=== PATIENT | male | born 1940 | race Caucasian/White ===

== ENCOUNTER 2017-01-24 15:39 | Inpatient (IN) | payer MEDICARE, OTHER ==
[2017-01-24 17:10] LABS: Basophils # (A) 0.1 k/uL (0-0.2); Basophils % (A) 0 %; CH 33.9; CHCM 32.9; Eosinophils # (A) 0.1 k/uL (0-0.7); Eosinophils % (A) 1 %; HCT 52.9 % (39.0-53.0); HDW 2.95; HGB 17.6 gm/dL (13.0-17.5); Luc # (Auto) 0.07; Luc % (Auto) 1; Lymphocytes # (A) 0.6 k/uL (1.0-4.8); Lymphocytes % (A) 5 %; MCH 34.4 pg (25.0-35.0); MCHC 33.2 g/dL (31.0-37.0); MCV 103.7 fL (80.0-100.0); Macrocytosis Slight; Mean Platelet Volume 8.3; Monocytes # (A) 0.4 k/uL (0-1.0); Monocytes % (A) 4 %; Neutrophils # (A) 9.3 k/uL (1.3-7.7); Neutrophils % (A) 89 %; RDW 13.4 % (11.5-15.5); WBC 10.4 k/uL (3.8-10.6); WBC (Perox) 10.12
[2017-01-24] MEDS ORDERED: ACETAMINOPHEN TAB 500 MG TAB PO STA (17:10)
--- NOTE | 2017-01-24 17:23 | ED ---
General Adult HPI - General Source: patient, EMS, RN notes reviewed Mode of arrival: EMS Limitations: no limitations <Praksah Rodriguez - Last Filed: 01/24/17 18:43> <Sergio Peters - Last Filed: 01/24/17 18:51> - General Chief complaint: Fall Stated complaint: MILE, WEAKNESS Time Seen by Provider: 01/24/17 17:04 - History of Present Illness Initial comments: This a 76-year-old male presents emergency department via EMS chief complaint weakness. Patient states that he tried to transfer from his chair got wobbly and fell to the ground. He states he has not been able get off the ground and years. Patient states that EMS want to take him to the hospital because of his unsteadiness. Patient states he has been sick since with a cough and chest congestion. He states he's had gotten cold flashes. Patient states cough is wet sounding and slightly productive. Denies any chest pain denies any history of CHF, COPD or asthma. Patient denies any headache or dizziness. Denies head injury, LOC. Denies any hip or any back pain from a fall. He states it was a gentle fall to the ground. Patient has no abdominal complaints. (Prakash Rodriguez) - Related Data Home Medications Medication Instructions Recorded Confirmed Clotrimazole/Betameth Cream 1 applic TOPICAL BID 01/17/15 01/24/17 [Lotrisone] Gabapentin [Neurontin] 300 mg PO Q8H 01/17/15 01/24/17 Metaxalone 800 mg PO BID PRN 01/17/15 01/24/17 Finasteride [Proscar] 5 mg PO QAM 12/14/15 01/24/17 Furosemide [Lasix] 20 mg PO QAM 12/14/15 01/24/17 Bisacodyl [Dulcolax] 5 mg PO DAILY 03/09/16 01/24/17 Enalapril [Vasotec] 2.5 mg PO DAILY 03/09/16 01/24/17 Multivitamins, Thera [Multivitamin 1 tab PO DAILY 03/09/16 01/24/17 (formulary)] Rosuvastatin [Crestor] 10 mg PO DAILY 03/09/16 01/24/17 Apixaban [Eliquis] 5 mg PO BID 01/24/17 01/24/17 Cyanocobalamin (Vitamin B-12) 1,000 mcg PO DAILY 01/24/17 01/24/17 [Vitamin B-12] HYDROcodone/APAP 7.5-325MG [[place] 1 tab PO Q6HR PRN 01/24/17 01/24/17 7.5-325] Promethazine 6.25MG/5Ml [Phenergan 5 - 10 ml PO Q6H PRN 01/24/17 01/24/17 Syrup] Allergies Allergy/AdvReac Type Severity Reaction Status Date / Time Penicillins Allergy Unknown. Verified 01/24/17 16:17 INJECTION FORM ONLY Review of Systems ROS Other: All systems not noted in ROS Statement are negative. <Prakash Rodriguez - Last Filed: 01/24/17 18:43> ROS Other: All systems not noted in ROS Statement are negative. <Sergio Peters - Last Filed: 01/24/17 18:51> ROS Statement: Those systems with pertinent positive or pertinent negative responses have been documented in the HPI. 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, CLEMENTINE but no longer wears CPAP due to significant weight loss and the use of CPAP mask became painful due to R head neuropathy,Pneumonia in 2009, COPD-mild, 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 Past Psychological History: No Psychological Hx Reported Smoking Status: Never smoker Past Alcohol Use History: Occasional Past Drug Use History: None Reported - Past Family History Father Family Medical History: Cancer Additional Family Medical History / Comment(s): Father had colon cancer. He of aortic aneurysm at age 92/93 yrs Mother Family Medical History: Coronary Artery Disease (CAD) Additional Family Medical History / Comment(s): Mother had heart issues and at age 75/76 yrs. <Prakash Rodriguez - Last Filed: 01/24/17 18:43> General Exam Limitations: no limitations General appearance: alert, in no apparent distress Head exam: Present: atraumatic, normocephalic, normal inspection Eye exam: Present: normal appearance, PERRL, EOMI. Absent: scleral icterus, conjunctival injection, periorbital swelling Neck exam: Present: normal inspection, full ROM. Absent: tenderness, meningismus, lymphadenopathy Respiratory exam: Present: rhonchi (Minimal). Absent: respiratory distress, wheezes, rales, stridor Cardiovascular Exam: Present: normal rhythm, tachycardia, normal heart sounds. Absent: systolic murmur, diastolic murmur, rubs, gallop, clicks GI/Abdominal exam: Present: soft, normal bowel sounds. Absent: distended, tenderness, guarding, rebound, rigid Back exam: Absent: CVA tenderness (R), CVA tenderness (L) Neurological exam: Present: alert, oriented X3, CN II-XII intact, reflexes normal. Absent: motor sensory deficit Skin exam: Present: warm, dry, intact, normal color. Absent: rash <Prakash Rodriguez - Last Filed: 01/24/17 18:43> Course <Prakash Rodriguez - Last Filed: 01/24/17 18:43> <Sergio Peters - Last Filed: 01/24/17 18:51> Vital Signs 01/24/17 01/24/17 01/24/17 15:51 15:57 16:00 Temperature 100 F H Pulse Rate 115 H 116 H Respiratory 18 20 18 Rate Blood Pressure 164/52 172/91 O2 Sat by Pulse 92 L 95 Oximetry 01/24/17 01/24/17 01/24/17 16:43 17:00 17:15 Temperature Pulse Rate 113 H 112 H 114 H Respiratory 18 18 18 Rate Blood Pressure 124/79 133/95 158/94 O2 Sat by Pulse 95 95 95 Oximetry 01/24/17 18:00 Temperature Pulse Rate 112 H Respiratory 18 Rate Blood Pressure 154/86 O2 Sat by Pulse 96 Oximetry - Reevaluation(s) Reevaluation #1: 10/15/17 18:51 Patient does meet clinical criteria for sepsis diagnosis at 1849. (Sergio Peters) EKG Findings - EKG Comments: EKG Findings:: EKG performed at 15:55 sinus tachycardia with right bundle rachel block, rate 116 IA interval 162 QS duration 120 QT/QTC 328/455 <Prakash Rodriguez - Last Filed: 01/24/17 18:43> Medical Decision Making - Lab Data Result diagrams: 01/24/17 16:18 01/24/17 16:15 <Prakash Rodriguez - Last Filed: 01/24/17 18:43> - Lab Data Result diagrams: 01/24/17 16:18 01/24/17 16:15 <Sergio Peters - Last Filed: 01/24/17 18:51> - Medical Decision Making Case discussed with Dr. Garnica who did evaluate patient and will admit. Patient reevaluated and updated. Patient does have rhonchi and right-sided rales. Patient clinically has pneumonia. (Sergio Peters) - Lab Data Lab Results 01/24/17 01/24/17 01/24/17 Range/Units 16:15 16:15 16:18 WBC 10.4 (3.8-10.6) k/uL RBC 5.10 (4.30-5.90) m/uL Hgb 17.6 H (13.0-17.5) gm/dL Hct 52.9 (39.0-53.0) % MCV 103.7 H (80.0-100.0) fL MCH 34.4 (25.0-35.0) pg MCHC 33.2 (31.0-37.0) g/dL RDW 13.4 (11.5-15.5) % Plt Count 217 (150-450) k/uL Neutrophils % 89 % Lymphocytes % 5 % Monocytes % 4 % Eosinophils % 1 % Basophils % 0 % Neutrophils # 9.3 H (1.3-7.7) k/uL Lymphocytes # 0.6 L (1.0-4.8) k/uL Monocytes # 0.4 (0-1.0) k/uL Eosinophils # 0.1 (0-0.7) k/uL Basophils # 0.1 (0-0.2) k/uL Macrocytosis Slight PT 12.8 H (9.0-12.0) sec INR 1.3 H (<1.2) APTT 27.0 (22.0-30.0) sec Sodium 141 (137-145) mmol/L Potassium 4.2 (3.5-5.1) mmol/L Chloride 105 (98-107) mmol/L Carbon Dioxide 19 L (22-30) mmol/L Anion Gap 17 mmol/L BUN 11 (9-20) mg/dL Creatinine 0.80 (0.66-1.25) mg/dL Est GFR (MDRD) Af Amer >60 (>60 ml/min/1.73 sqM) Est GFR (MDRD) Non-Af >60 (>60 ml/min/1.73 sqM) Glucose 127 H (74-99) mg/dL Plasma Lactic Acid Lan (0.7-2.0) mmol/L Calcium 9.0 (8.4-10.2) mg/dL Total Bilirubin 1.4 H (0.2-1.3) mg/dL AST 18 (17-59) U/L ALT 30 (21-72) U/L Alkaline Phosphatase 78 (38-126) U/L Troponin I (0.000-0.034) ng/mL Total Protein 7.4 (6.3-8.2) g/dL Albumin 4.0 (3.5-5.0) g/dL Influenza Type A RNA (Not Detectd) Influenza Type B (PCR) (Not Detectd) 01/24/17 01/24/17 01/24/17 Range/Units 16:18 17:30 17:36 WBC (3.8-10.6) k/uL RBC (4.30-5.90) m/uL Hgb (13.0-17.5) gm/dL Hct (39.0-53.0) % MCV (80.0-100.0) fL MCH (25.0-35.0) pg MCHC (31.0-37.0) g/dL RDW (11.5-15.5) % Plt Count (150-450) k/uL Neutrophils % % Lymphocytes % % Monocytes % % Eosinophils % % Basophils % % Neutrophils # (1.3-7.7) k/uL Lymphocytes # (1.0-4.8) k/uL Monocytes # (0-1.0) k/uL Eosinophils # (0-0.7) k/uL Basophils # (0-0.2) k/uL Macrocytosis PT (9.0-12.0) sec INR (<1.2) APTT (22.0-30.0) sec Sodium (137-145) mmol/L Potassium (3.5-5.1) mmol/L Chloride (98-107) mmol/L Carbon Dioxide (22-30) mmol/L Anion Gap mmol/L BUN (9-20) mg/dL Creatinine (0.66-1.25) mg/dL Est GFR (MDRD) Af Amer (>60 ml/min/1.73 sqM) Est GFR (MDRD) Non-Af (>60 ml/min/1.73 sqM) Glucose (74-99) mg/dL Plasma Lactic Acid Lan 1.9 (0.7-2.0) mmol/L Calcium (8.4-10.2) mg/dL Total Bilirubin (0.2-1.3) mg/dL AST (17-59) U/L ALT (21-72) U/L Alkaline Phosphatase (38-126) U/L Troponin I <0.012 (0.000-0.034) ng/mL Total Protein (6.3-8.2) g/dL Albumin (3.5-5.0) g/dL Influenza Type A RNA Not Detected (Not Detectd) Influenza Type B (PCR) Not Detected (Not Detectd) Disposition Time of Disposition: 18:44 <Prakash Rodriguez - Last Filed: 01/24/17 18:43> <Sergio Peters - Last Filed: 01/24/17 18:51> Clinical Impression: Fall, Pneumonia, Fever, Hypoxia, Weakness, Sepsis Disposition: ADMITTED IP TO THIS HOSP Condition: Fair Referrals: Bobby Keita DO [Primary Care Provider] - 1-2 days
[2017-01-24] MEDS ORDERED: CYCLOBENZAPRINE 10 MG TAB PO PRN (17:43)
[2017-01-24 18:03] LABS: INR 1.3 (<1.2); Prothrombin Time 12.8 sec (9.0-12.0)
[2017-01-24 18:09] LABS: ALT 30 U/L (21-72); AST 18 U/L (17-59); Alkaline Phosphatase 78 U/L (38-126); Anion Gap 17 mmol/L; Blood Urea Nitrogen 11 mg/dL (9-20); Carbon Dioxide 19 mmol/L (22-30); Chloride 105 mmol/L (98-107); Glucose 127 mg/dL (74-99); Non-African American GFR(MDRD) >60 (>60 ml/min/1.73 sqM); Potassium 4.2 mmol/L (3.5-5.1); Sodium 141 mmol/L (137-145); Total Bilirubin 1.4 mg/dL (0.2-1.3); Total Protein 7.4 g/dL (6.3-8.2)
--- NOTE | 2017-01-24 18:35 | XR ---
EXAMINATION TYPE: XR chest 2V DATE OF EXAM: 01/24/2017 COMPARISON: Chest x-ray March 09, 2016 HISTORY: Cough and shortness of breath TECHNIQUE: Frontal and lateral views of the chest are obtained. FINDINGS: There is chronic parenchymal change without suspicious new focal air space opacity, pleura l effusion, or pneumothorax seen. The cardiac silhouette size remains upper limits of normal. Surgic al change in the cervical thoracic spine is partially imaged similar to prior. IMPRESSION: Chronic changes without acute cardiopulmonary process. No significant change from prior.
--- NOTE | 2017-01-24 18:43 | HP ---
HISTORY AND PHYSICAL CHIEF COMPLAINTS: Weakness, shortness of breath and cough. HISTORY: This 76-year-old gentleman with a past medical history of multiple medical problems, history of deep venous thrombosis, history of DJD, history of sleep apnea, history of cholecystectomy, being followed by Dr. Keita in the outpatient setting was complaining of cough and sputum for the past several days. Patient complained of progressively weak and today the patient also had some shortness of breath also. Patient while transferring to the chair, the patient felt wobbly and patient apparently fell down and the patient had scratches on the left arm and as well as left heel and the patient came to [facility] and admitted for further evaluation and treatment. There is no history of any fever, rigors, chills, no history of headache, loss of consciousness or seizures. PAST MEDICAL HISTORY: History of DVT, history of GERD, history of cholecystectomy. MEDICATIONS PRIOR TO ADMISSION: Include home medications are reviewed which include: 1. Crestor 10 mg daily. 2. Phenergan p.r.n. 3. Multivitamins 1 daily. 5. Nogal 7.5 q.6h p.r.n. 6. Neurontin 300 mg Q daily. 7. Lasix 20 mg q.a.m. 8. Proscar 5 mg q.i.d. 9. Vasotec 2.5 mg daily. 10.Vitamin B12 1000 mcg p.o. daily. 11.Lotrisone cream. 12.Dulcolax 5 mg daily. 13.Eliquis 5 mg p.o. b.i.d. ALLERGIES: PENICILLIN. FAMILY HISTORY: History of cancer in the family. SOCIAL HISTORY: No history of smoking. Occasional alcohol intake. REVIEW OF SYSTEMS: ENT: Diminished hearing and diminished vision. CARDIOVASCULAR: No angina or palpitations. RESPIRATORY: As mentioned earlier. GI no nausea or vomiting. no dysuria. Nervous System: As mentioned earlier. Allergy/Immunology: No asthma or hayfever. Musculoskeletal: As mentioned earlier. Hematology: No history of anemia. Endocrine: No history of diabetes or hypothyroidism. Constitutional: As mentioned earlier. Rheumatology: Negative. Dermatology: Negative. Psychiatric: As mentioned earlier. PHYSICAL EXAMINATION: Alert and oriented times three. Pulse is 116, blood pressure 172/91, respirations 18, temperature 100 degrees, pulse ox 94% on 2 L. HEENT: Conjunctivae normal. Oral mucosa moist. Neck is no jugular venous distention. No carotid bruit. No lymph node enlargement. Cardiovascular: S1, S2 muffled. Respiratory: Breath sounds diminished in the bases. A few scattered rhonchi and crackles. Expiratory wheezing also present. ABDOMEN: Soft, nontender. No mass palpable. Legs minimal edema. No swelling. NERVOUS SYSTEM: Higher functions as mentioned earlier. Moves all four extremities. Mild diffuse weakness. Lymphatics: No lymph nodes palpable in the neck, axillae or groin. Skin no ulcer, rash or bleeding. LABS: WBC 10.2, hemoglobin 17.6. ASSESSMENT: 1. Possibly acute bronchitis rule out pneumonia. 2. Weakness for evaluation. 3. History of deep vein thrombosis. 4. History of degenerative joint disease. 5. Gait dysfunction. 6. History of sleep apnea. 7. Hypertension. RECOMMENDATION AND DISCUSSION: In this 76-year-old gentleman who presented with multiple complex medical issues , will monitor the patient closely. Continue the current medications, management and symptomatic treatment. At this time I recommend chest x-ray and empiric antibiotics. Otherwise resume home medications. PT/OT evaluation for possible rehab. Dr. Keita will be consulted. Guarded prognosis because of multiple complex medical issues. Further recommendations to follow. A copy of dictation being forwarded to Dr. Keita who is the primary care physician. See orders for details. MMODL / IJN: [id number] / MTDD
[2017-01-24] MEDS: LEVOFLOXACIN 500MG-D5W PMX 500 MG in DEXTROSE/WATER 1 100ML.BAG IVPB SCH (18:48)
[2017-01-24 19:09] LABS: Appearance,Urine Clear (Clear); Bacteria,Urine Rare /hpf; Bilirubin,Urine 1+ (Negative); Glucose,Urine (UA) Negative (Negative); Ketones,Urine 4+ (Negative); Leukocyte Esterase,Urine Negative (Negative); Mucus,Urine Occasional /hpf; Nitrite,Urine Negative (Negative); PH, Urine 5.5 (5.0-8.0); Particle Count 3877; Protein,Urine 1+ (Negative); RBC,Urine 4 /hpf (0-5); Sperm,Urine Rare /hpf; Squamous Epithelial Cell,Urine <1 /hpf (0-4); UA Billing (MACRO vs. MICRO) MICRO; WBC,Urine 1 /hpf (0-5)
[2017-01-24] MEDS: HYDROcodone/APAP 7.5-325MG 1 EACH TAB PO PRN (20:00)
[2017-01-24] MEDS: GABAPENTIN 300 MG CAP PO SCH ×2 (20:58→23:25)
[2017-01-24] MEDS: APIXABAN 5 MG TAB PO SCH (20:58)
[2017-01-24] MEDS: LEVALBUTEROL NEB 1.25 MG/3 ML AMP INHALATION SCH (21:31)
[2017-01-24] MEDS: CLOTRIMAZOLE/BETAMETH 1-0.05% CREAM 45 GM TUBE TOPICAL SCH (22:44)
[2017-01-25] MEDS: LEVALBUTEROL NEB 1.25 MG/3 ML AMP INHALATION SCH ×2 (07:56→11:49)
[2017-01-25] MEDS: APIXABAN 5 MG TAB PO SCH ×2 (08:08→22:33)
[2017-01-25] MEDS: BISACODYL 5 MG TABLET.DR PO SCH (08:08)
[2017-01-25] MEDS: PANTOPRAZOLE 40 MG TABLET PO SCH (08:08)
[2017-01-25] MEDS: ATORVASTATIN 20 MG TAB PO SCH (08:09)
[2017-01-25] MEDS: CLOTRIMAZOLE/BETAMETH 1-0.05% CREAM 45 GM TUBE TOPICAL SCH ×2 (08:09→21:22)
[2017-01-25] MEDS: FINASTERIDE 5 MG TAB PO SCH (08:10)
[2017-01-25] MEDS: GABAPENTIN 300 MG CAP PO SCH ×3 (08:11→21:22)
[2017-01-25] MEDS ORDERED: LISINOPRIL 5 MG TAB PO SCH (09:00)
[2017-01-25] MEDS ORDERED: FUROSEMIDE 20 MG TAB PO SCH (09:00)
[2017-01-25 10:02] LABS: Basophils % (A) 0 %; CH 34.8; CHCM 34.1; Eosinophils % (A) 0 %; HDW 2.83; HGB 17.9 gm/dL (13.0-17.5); Luc # (Auto) 0.07; Luc % (Auto) 1; Lymphocytes # (A) 0.7 k/uL (1.0-4.8); Lymphocytes % (A) 8 %; MCHC 33.1 g/dL (31.0-37.0); MCV 102.7 fL (80.0-100.0); Macrocytosis Slight; Monocytes # (A) 0.6 k/uL (0-1.0); Monocytes % (A) 6 %; Neutrophils # (A) 7.8 k/uL (1.3-7.7); Neutrophils % (A) 85 %; RBC 5.26 m/uL (4.30-5.90); RDW 14.3 % (11.5-15.5); WBC 9.3 k/uL (3.8-10.6); WBC (Perox) 8.35
[2017-01-25 10:38] LABS: Anion Gap 14 mmol/L; Blood Urea Nitrogen 14 mg/dL (9-20); Calcium 8.6 mg/dL (8.4-10.2); Carbon Dioxide 23 mmol/L (22-30); Chloride 105 mmol/L (98-107); Glucose 108 mg/dL (74-99); Non-African American GFR(MDRD) >60 (>60 ml/min/1.73 sqM); Sodium 142 mmol/L (137-145)
[2017-01-25 10:44] LABS: Potassium 4.3 mmol/L (3.5-5.1)
[2017-01-25] MEDS: CYANOCOBALAMIN 500 MCG TAB PO SCH (11:18)
[2017-01-25] MEDS: MULTIVITAMINS, THERA 1 EACH TAB PO SCH (11:18)
--- NOTE | 2017-01-25 11:41 | P.CNPUL ---
History of Present Illness Consult date: 01/25/17 Requesting physician: Dillan Garnica Chief complaint: Weakness, cough, congestion History of present illness: This is a 76-year-old gentleman who follows with Dr. Keita as his primary care physician. He is a lifelong nonsmoker. No documented pulmonary disease. 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 The patient presented here yesterday after sustaining a fall at home. He states he was transferring from the bed to the chair and the weakness caused him to fall. He denies any injury. He also states he had been having shortness of breath, cough and congestion for approximately 1 week prior to his arrival. On and off with chills. Occasional productive cough of yellow sputum. He did have a T-max of 100.0. His chest x-ray shows evidence of chronic changes but no acute cardiopulmonary process. He is maintaining O2 saturations in the upper 90s on 3 L/m per nasal cannula. Currently afebrile. No leukocytosis. Hemodynamically stable. Urine and blood cultures are pending. Influenza screen negative. Review of Systems 14 point review of system was conducted. All negative other than as mentioned in the HPI. 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, CLEMENTINE but no longer wears CPAP due to significant weight loss and the use of CPAP mask became painful due to R head neuropathy,Pneumonia in 2009, COPD-mild, 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 Past Psychological History: No Psychological Hx Reported Additional Psychological History / Comment(s): Pt resides with his spouse. He is normally fairly independent. She uses a cane to ambulate. He needs help putting on socks and shoes. He drives. He works at his own business. Smoking Status: Never smoker Past Alcohol Use History: Occasional Past Drug Use History: None Reported - Past Family History Father Family Medical History: Cancer Additional Family Medical History / Comment(s): Father had colon cancer. He of aortic aneurysm at age 92/93 yrs Mother Family Medical History: Coronary Artery Disease (CAD) Additional Family Medical History / Comment(s): Mother had heart issues and at age 75/76 yrs. Medications and Allergies Home Medications Medication Instructions Recorded Confirmed Type Clotrimazole/Betameth Cream 1 applic TOPICAL BID 01/17/15 01/24/17 History [Lotrisone] Gabapentin [Neurontin] 300 mg PO Q8H 01/17/15 01/24/17 History Metaxalone 800 mg PO BID PRN 01/17/15 01/24/17 History Finasteride [Proscar] 5 mg PO QAM 12/14/15 01/24/17 History Furosemide [Lasix] 20 mg PO QAM 12/14/15 01/24/17 History Bisacodyl [Dulcolax] 5 mg PO DAILY 03/09/16 01/24/17 History Enalapril [Vasotec] 2.5 mg PO DAILY 03/09/16 01/24/17 History Multivitamins, Thera [Multivitamin 1 tab PO DAILY 03/09/16 01/24/17 History (formulary)] Rosuvastatin [Crestor] 10 mg PO DAILY 03/09/16 01/24/17 History Apixaban [Eliquis] 5 mg PO BID 01/24/17 01/24/17 History Cyanocobalamin (Vitamin B-12) 1,000 mcg PO DAILY 01/24/17 01/24/17 History [Vitamin B-12] HYDROcodone/APAP 7.5-325MG [[place] 1 tab PO Q6HR PRN 01/24/17 01/24/17 History 7.5-325] Promethazine 6.25MG/5Ml [Phenergan 5 - 10 ml PO Q6H PRN 01/24/17 01/24/17 History Syrup] Allergies Allergy/AdvReac Type Severity Reaction Status Date / Time Penicillins Allergy Unknown. Verified 01/24/17 16:17 INJECTION FORM ONLY Physical Exam Vitals: Vital Signs Temp Pulse Pulse Resp BP BP Pulse Ox 01/25/17 07:00 98.3 F 88 18 158/99 97 01/24/17 23:00 97.7 F 97 16 115/73 96 01/24/17 20:00 98 F 99 16 113/78 95 01/24/17 18:00 112 H 18 154/86 96 01/24/17 17:15 114 H 18 158/94 95 01/24/17 17:00 112 H 18 133/95 95 01/24/17 16:43 113 H 18 124/79 95 01/24/17 16:00 116 H 18 172/91 95 01/24/17 15:57 20 01/24/17 15:51 100 F H 115 H 18 164/52 92 L Intake and Output 01/24/17 01/25/17 01/25/17 22:59 06:59 14:59 Intake Total 300 Output Total 250 0 Balance 50 0 Intake: Intake, IV Titration 100 Amount Levofloxacin 500Mg-D5w 100 Pmx 500 mg In Dextrose/ Water 1 100ml.bag @ 100 mls/hr IVPB DAILY@1800 [facility] Rx#:[id number] Oral 200 Output: Urine 250 0 Straight 250 Other: Voiding Method Urinal # Voids 0 # Bowel Movements 0 Weight 90.718 kg GENERAL EXAM: Alert, active, comfortable in no apparent distress. HEAD: Normocephalic. EYES: Normal reaction of pupils, equal size. NOSE: Clear with pink turbinates. THROAT: No erythema or exudates. NECK: No masses, no JVD. CHEST: No chest wall deformity. LUNGS: Equal air entry with few scattered rhonchi. CVS: S1 and S2 normal with no audible murmur, regular rhythm. ABDOMEN: No hepatosplenomegaly, normal bowel sounds, no guarding or rigidity. SPINE: No scoliosis or deformity SKIN: No rashes CENTRAL NERVOUS SYSTEM: No focal deficits, tone is normal in all 4 extremities. EXTREMITIES: There is no peripheral edema. No clubbing, no cyanosis. Peripheral pulses are intact. Results - Laboratory Findings CBC and BMP: 01/25/17 09:23 01/25/17 09:23 PT/INR, D-dimer PT 12.8 sec (9.0-12.0) H 01/24/17 16:15 INR 1.3 (<1.2) H 01/24/17 16:15 Abnormal lab findings: Abnormal Labs 01/24/17 01/24/17 01/24/17 16:15 16:15 16:18 Hgb 17.6 H Hct MCV 103.7 H Neutrophils # 9.3 H Lymphocytes # 0.6 L PT 12.8 H INR 1.3 H Carbon Dioxide 19 L Glucose 127 H Total Bilirubin 1.4 H Urine Protein Urine Ketones Urine Blood Urine Bilirubin Urine Bacteria Hyaline Casts Urine Mucus 01/24/17 01/25/17 01/25/17 18:40 09:23 09:23 Hgb 17.9 H Hct 54.0 H MCV 102.7 H Neutrophils # 7.8 H Lymphocytes # 0.7 L PT INR Carbon Dioxide Glucose 108 H Total Bilirubin Urine Protein 1+ H Urine Ketones 4+ H Urine Blood Small H Urine Bilirubin 1+ H Urine Bacteria Rare H Hyaline Casts 3 H Urine Mucus Occasional H - Diagnostic Findings Chest x-ray: image reviewed (Chronic changes with no acute cardiopulmonary process) Assessment and Plan Plan: impression: #1 Fall without injury secondary to lower extremity weakness, chronic #2 Acute tracheobronchitis without clear evidence of pneumonia #3 Acute hypoxic respiratory failure secondary to above. 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 Currently maintained on apixaban with lifelong anticoagulation. #5 Hypertension. #6 Hyperlipidemia. #7 Degenerative disc disease with previous cervical spine surgery. #8 Obstructive sleep apnea but no longer wear CPAP in the outpatient setting. #9 History of shingles. #10 History of nephrolithiasis status post lithotripsy. Plan: The patient was seen and evaluated by Dr. Clinton. His chest x-ray and labs were reviewed. We'll go ahead and treat the patient for his acute bronchitis utilizing bronchodilators and empiric antibiotics in the form of Levaquin. He remains anticoagulated with the apixaban. He is on Protonix for GI prophylaxis. Physical therapy is working with the patient. We will increase his activity as tolerated. We'll continue to follow. I, the cosigning physician, performed a history & physical examination of the patient. Lungs sounds with few scattered rhonchi. I discussed the assessment and plan with my nurse practitioner, Freida Shabazz. I reviewed her note and agree with the documented findings and plan of care. Time with Patient: Greater than 30
--- NOTE | 2017-01-25 13:18 | P.PN ---
Subjective 76-year-old admitted after a fall and fever and patient is being treated for bronchitis beyond which there is no obvious source of infection that was found patient is feeling little bit better today. Physical therapy will valid the patient will continue the antibiotics. We will also get TSH. possibly of discharge tomorrow. Constitutional: As mentioned in HPI Cardio vascular: denied any chest pain, palpitations Gastrointestinal denied any nausea vomiting Pulmonary: Denied any shortness of breath cough Neurologic denied any new focal deficits Objective - Vital Signs Vital signs: Vital Signs Temp 98.3 F 01/25/17 07:00 Pulse 88 01/25/17 07:00 Resp 18 01/25/17 07:00 BP 158/99 01/25/17 07:00 Pulse Ox 97 01/25/17 07:00 Intake & Output 01/24/17 01/25/17 01/25/17 18:59 06:59 18:59 Intake Total 300 Output Total 250 0 100 Balance -250 300 -100 Weight 90.718 kg Intake: Intake, IV Titration 100 Amount Levofloxacin 500Mg-D5w 100 Pmx 500 mg In Dextrose/ Water 1 100ml.bag @ 100 mls/hr IVPB DAILY@1800 [facility] Rx#:[id number] Oral 200 Output: Urine 250 0 100 Straight 250 Other: Voiding Method Urinal # Voids 0 # Bowel Movements 0 - Exam PHYSICAL EXAMINATION: GENERAL: The patient is alert and oriented x3, not in any acute distress. Well developed, well nourished. HEENT: Pupils are round and equally reacting to light. EOMI. No scleral icterus. No conjunctival pallor. Normocephalic, atraumatic. No pharyngeal erythema. No thyromegaly. CARDIOVASCULAR: S1 and S2 present. No murmurs, rubs, or gallops. PULMONARY: Chest is clear to auscultation, no wheezing or crackles. ABDOMEN: Soft, nontender, nondistended, normoactive bowel sounds. No palpable organomegaly. MUSCULOSKELETAL: No joint swelling or deformity. EXTREMITIES: No cyanosis, clubbing, or pedal edema. NEUROLOGICAL: Gross neurological examination did not reveal any focal deficits. Patient does have generalized weakness SKIN: No rashes. - Labs CBC & Chem 7: 01/25/17 09:23 01/25/17 09:23 Labs: Abnormal Lab Results - Last 24 Hours (Table) 1001/24/17 01/24/17 Range/Units 16:15 16:15 16:18 Hgb 17.6 H (13.0-17.5) gm/dL Hct (39.0-53.0) % MCV 103.7 H (80.0-100.0) fL Neutrophils # 9.3 H (1.3-7.7) k/uL Lymphocytes # 0.6 L (1.0-4.8) k/uL PT 12.8 H (9.0-12.0) sec INR 1.3 H (<1.2) Carbon Dioxide 19 L (22-30) mmol/L Glucose 127 H (74-99) mg/dL Total Bilirubin 1.4 H (0.2-1.3) mg/dL Urine Protein (Negative) Urine Ketones (Negative) Urine Blood (Negative) Urine Bilirubin (Negative) Urine Bacteria (None) /hpf Hyaline Casts (0-2) /lpf Urine Mucus (None) /hpf 01/24/17 01/25/17 01/25/17 Range/Units 18:40 09:23 09:23 Hgb 17.9 H (13.0-17.5) gm/dL Hct 54.0 H (39.0-53.0) % MCV 102.7 H (80.0-100.0) fL Neutrophils # 7.8 H (1.3-7.7) k/uL Lymphocytes # 0.7 L (1.0-4.8) k/uL PT (9.0-12.0) sec INR (<1.2) Carbon Dioxide (22-30) mmol/L Glucose 108 H (74-99) mg/dL Total Bilirubin (0.2-1.3) mg/dL Urine Protein 1+ H (Negative) Urine Ketones 4+ H (Negative) Urine Blood Small H (Negative) Urine Bilirubin 1+ H (Negative) Urine Bacteria Rare H (None) /hpf Hyaline Casts 3 H (0-2) /lpf Urine Mucus Occasional H (None) /hpf Microbiology - Last 24 Hours (Table) 01/24/17 18:40 Urine Culture - Preliminary Urine,Catheterized Assessment and Plan Plan: #1 Fall without injury secondary to lower extremity weakness, chronic #2 Acute tracheobronchitis without clear evidence of pneumonia #3 Acute hypoxic respiratory failure secondary to above. 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 Currently maintained on apixaban with lifelong anticoagulation. #5 Hypertension. #6 Hyperlipidemia. #7 Degenerative disc disease with previous cervical spine surgery. #8 Obstructive sleep apnea but no longer wear CPAP in the outpatient setting. #9 History of shingles. #10 History of nephrolithiasis status post lithotripsy. Plan: Patient will be continue on antibiotics PT and OT evaluation possibly of discharge tomorrow home with home care patient is declining to go to subacute rehabitation. Lasix will be discontinued, lisinopril dose will be cut down to half
[2017-01-25] MEDS: LEVOFLOXACIN 500MG-D5W PMX 500 MG in DEXTROSE/WATER 1 100ML.BAG IVPB SCH (15:16)
[2017-01-25] MEDS: methylPREDNISolone SOD SUCCI 40 MG/ML 1 ML VIAL IV SCH ×2 (16:02→23:22)
[2017-01-25] MEDS: IPRATROPIUM-ALBUTEROL 3 ML NEB INHALATION SCH ×2 (17:29→19:18)
[2017-01-26] MEDS: IPRATROPIUM-ALBUTEROL 3 ML NEB INHALATION SCH ×4 (06:51→20:36)
[2017-01-26] MEDS: GABAPENTIN 300 MG CAP PO SCH ×3 (07:39→21:10)
[2017-01-26] MEDS: FINASTERIDE 5 MG TAB PO SCH (07:39)
[2017-01-26] MEDS: PANTOPRAZOLE 40 MG TABLET PO SCH (07:39)
[2017-01-26] MEDS: ATORVASTATIN 20 MG TAB PO SCH (07:39)
[2017-01-26] MEDS: LISINOPRIL 2.5 MG TAB PO SCH (07:39)
[2017-01-26] MEDS: CLOTRIMAZOLE/BETAMETH 1-0.05% CREAM 45 GM TUBE TOPICAL SCH ×2 (07:40→22:25)
[2017-01-26] MEDS: BISACODYL 5 MG TABLET.DR PO SCH (07:40)
[2017-01-26] MEDS: methylPREDNISolone SOD SUCCI 40 MG/ML 1 ML VIAL IV SCH ×2 (07:40→15:54)
[2017-01-26] MEDS: APIXABAN 5 MG TAB PO SCH ×2 (07:40→21:10)
[2017-01-26 08:56] LABS: Basophils % (A) 0 %; CH 33.6; CHCM 32.8; Eosinophils % (A) 0 %; HDW 2.92; HGB 16.6 gm/dL (13.0-17.5); Luc # (Auto) 0.04; Luc % (Auto) 1; Lymphocytes # (A) 0.6 k/uL (1.0-4.8); Lymphocytes % (A) 10 %; MCH 33.5 pg (25.0-35.0); MCHC 32.5 g/dL (31.0-37.0); MCV 103.2 fL (80.0-100.0); Macrocytosis Slight; Mean Platelet Volume 7.4; Monocytes # (A) 0.2 k/uL (0-1.0); Monocytes % (A) 3 %; Neutrophils # (A) 4.8 k/uL (1.3-7.7); Neutrophils % (A) 86 %; RBC 4.94 m/uL (4.30-5.90); RDW 13.4 % (11.5-15.5); WBC 5.6 k/uL (3.8-10.6); WBC (Perox) 5.63
[2017-01-26 09:21] LABS: Anion Gap 14 mmol/L; Blood Urea Nitrogen 12 mg/dL (9-20); Calcium 8.6 mg/dL (8.4-10.2); Carbon Dioxide 25 mmol/L (22-30); Chloride 104 mmol/L (98-107); Glucose 152 mg/dL (74-99); Non-African American GFR(MDRD) >60 (>60 ml/min/1.73 sqM); Potassium 4.4 mmol/L (3.5-5.1); Sodium 143 mmol/L (137-145)
[2017-01-26] MEDS ORDERED: ONDANSETRON 4 MG/2 ML VIAL IVP PRN (09:24)
[2017-01-26] MEDS: CYANOCOBALAMIN 500 MCG TAB PO SCH (11:19)
[2017-01-26] MEDS: MULTIVITAMINS, THERA 1 EACH TAB PO SCH (11:19)
[2017-01-26] MEDS: HYDROcodone/APAP 7.5-325MG 1 EACH TAB PO PRN (11:19)
--- NOTE | 2017-01-26 11:49 | P.PN ---
Subjective Progress Note Date: 01/26/17 Principal diagnosis: Acute tracheobronchitis, acute hypoxic respiratory failure This is a 76-year-old gentleman who follows with Dr. Keita as his primary care physician. He is a lifelong nonsmoker. No documented pulmonary disease. 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 The patient presented here yesterday after sustaining a fall at home. He states he was transferring from the bed to the chair and the weakness caused him to fall. He denies any injury. He also states he had been having shortness of breath, cough and congestion for approximately 1 week prior to his arrival. On and off with chills. Occasional productive cough of yellow sputum. He did have a T-max of 100.0. His chest x-ray shows evidence of chronic changes but no acute cardiopulmonary process. He is maintaining O2 saturations in the upper 90s on 3 L/m per nasal cannula. Currently afebrile. No leukocytosis. Hemodynamically stable. Urine and blood cultures are pending. Influenza screen negative. On 01/26/2017 patient is reevaluated. He remains quite weak. He had 4 episodes of emesis this morning, he was given IV anti-emetics. Lungs sounds are diminished air entry bilaterally, no wheezes or rhonchi. Patient has a loose nonproductive cough. Continues on 2 L oxygen per nasal cannula, no febrile episodes. Continues on Eliquis with a recent history of PEs. He states he did sit up in the chair for a period of time yesterday. Microbiology results have been reviewed and have been negative so far. Patient continues on Levaquin for antibiotic coverage Objective - Vital Signs Vital signs: Vital Signs Temp 98.1 F 01/26/17 07:00 Pulse 97 01/26/17 07:02 Resp 18 01/26/17 07:00 BP 138/85 01/26/17 07:00 Pulse Ox 96 01/26/17 07:00 Intake & Output 01/25/17 01/26/17 01/26/17 18:59 06:59 18:59 Output Total 625 550 Balance -625 -550 Output: Urine 625 550 Other: Voiding Method Urinal Urinal # Voids 1 3 2 - Exam GENERAL EXAM: Alert, active, comfortable in no apparent distress. HEAD: Normocephalic. EYES: Normal reaction of pupils, equal size. NOSE: Clear with pink turbinates. THROAT: No erythema or exudates. NECK: No masses, no JVD. CHEST: No chest wall deformity. LUNGS: Equal air entry with few scattered rhonchi. CVS: S1 and S2 normal with no audible murmur, regular rhythm. ABDOMEN: No hepatosplenomegaly, normal bowel sounds, no guarding or rigidity. SPINE: No scoliosis or deformity SKIN: No rashes CENTRAL NERVOUS SYSTEM: No focal deficits, tone is normal in all 4 extremities. EXTREMITIES: There is no peripheral edema. No clubbing, no cyanosis. Peripheral pulses are intact. - Labs CBC & Chem 7: 01/26/17 08:09 01/26/17 08:09 Labs: Abnormal Lab Results - Last 24 Hours (Table) 01/26/17 01/26/17 Range/Units 08:09 08:09 MCV 103.2 H (80.0-100.0) fL Lymphocytes # 0.6 L (1.0-4.8) k/uL Glucose 152 H (74-99) mg/dL Microbiology - Last 24 Hours (Table) 01/24/17 18:40 Urine Culture - Final Urine,Catheterized 01/24/17 16:18 Blood Culture - Preliminary Blood No Growth after 24 hours Assessment and Plan Plan: Assessment and Plan Plan: impression: #1 Fall without injury secondary to lower extremity weakness, chronic #2 Acute tracheobronchitis without clear evidence of pneumonia #3 Acute hypoxic respiratory failure secondary to above. 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 Currently maintained on apixaban with lifelong anticoagulation. #5 Hypertension. #6 Hyperlipidemia. #7 Degenerative disc disease with previous cervical spine surgery. #8 Obstructive sleep apnea but no longer wear CPAP in the outpatient setting. #9 History of shingles. #10 History of nephrolithiasis status post lithotripsy. Plan: The patient was seen and evaluated by Dr. Clinton. Continue with empiric antibiotics in the form of Levaquin, IV steroids and nebulized treatments. Unable to collect a sputum specimen as a patient is too weak to bring up the phlegm. He remains anticoagulated with the apixaban. He is on Protonix for GI prophylaxis. Physical therapy is working with the patient. We will increase his activity as tolerated. We'll continue to follow. I performed a history & physical examination of the patient and discussed their management with my nurse practitioner, Nuria Gann. I reviewed the nurse practitioner's note and agree with the documented findings and plan of care.
[2017-01-26] MEDS: LEVOFLOXACIN 500 MG TAB PO SCH (15:53)
[2017-01-27] MEDS: methylPREDNISolone SOD SUCCI 40 MG/ML 1 ML VIAL IV SCH ×2 (00:12→08:06)
--- NOTE | 2017-01-27 00:18 | P.PN ---
Subjective Progress Note Date: 01/26/17 Principal diagnosis: Status post fall 76-year-old admitted after a fall and fever and patient is being treated for bronchitis beyond which there is no obvious source of infection that was found patient is feeling little bit better today. Physical therapy will valid the patient will continue the antibiotics. TSH within normal limits and spit discharged to rehab. On 01/26/2017 Patient had episodes of vomiting today. Denied any chest pain or worsening short of breath. Able to sit in the chair. Still very weak and is participating in physical therapy. Anticipate discharge to rehab. No fever no chills. Constitutional: As mentioned in HPI Cardio vascular: denied any chest pain, palpitations Gastrointestinal denied any nausea vomiting Pulmonary: Denied any shortness of breath cough Neurologic denied any new focal deficits Current medications reviewed. Objective - Vital Signs Vital signs: Vital Signs Temp 98.1 F 01/26/17 07:00 Pulse 97 01/26/17 07:02 Resp 18 01/26/17 07:00 BP 138/85 01/26/17 07:00 Pulse Ox 96 01/26/17 07:00 Intake & Output 01/25/17 01/26/17 01/26/17 18:59 06:59 18:59 Output Total 625 550 Balance -625 -550 Output: Urine 625 550 Other: Voiding Method Urinal Urinal # Voids 1 3 2 - Exam GENERAL: The patient is alert and oriented x3, not in any acute distress. Well developed, well nourished. HEENT: Pupils are round and equally reacting to light. EOMI. No scleral icterus. No conjunctival pallor. Normocephalic, atraumatic. No pharyngeal erythema. No thyromegaly. CARDIOVASCULAR: S1 and S2 present. No murmurs, rubs, or gallops. PULMONARY: Chest is clear to auscultation, no wheezing or crackles. ABDOMEN: Soft, nontender, nondistended, normoactive bowel sounds. No palpable organomegaly. MUSCULOSKELETAL: No joint swelling or deformity. EXTREMITIES: No cyanosis, clubbing, or pedal edema. NEUROLOGICAL: Gross neurological examination did not reveal any focal deficits. Patient does have generalized weakness SKIN: No rashes. - Labs CBC & Chem 7: 01/26/17 08:09 01/26/17 08:09 Labs: Abnormal Lab Results - Last 24 Hours (Table) 01/26/17 01/26/17 Range/Units 08:09 08:09 MCV 103.2 H (80.0-100.0) fL Lymphocytes # 0.6 L (1.0-4.8) k/uL Glucose 152 H (74-99) mg/dL Microbiology - Last 24 Hours (Table) 01/24/17 18:40 Urine Culture - Final Urine,Catheterized 01/24/17 16:18 Blood Culture - Preliminary Blood No Growth after 24 hours Assessment and Plan Assessment: #1 Fall without injury secondary to lower extremity weakness, chronic #2 Acute tracheobronchitis without clear evidence of pneumonia #3 Acute hypoxic respiratory failure secondary to above. 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 Currently maintained on apixaban with lifelong anticoagulation. #5 Hypertension. #6 Hyperlipidemia. #7 Degenerative disc disease with previous cervical spine surgery. #8 Obstructive sleep apnea but no longer wear CPAP in the outpatient setting. #9 History of shingles. #10 History of nephrolithiasis status post lithotripsy. Plan: Patient will be continue on antibiotics PT and OT evaluation possibly of discharge to subacute rehabitation. Lasix was discontinued, lisinopril dose cut down to half Time with Patient: Greater than 30
[2017-01-27 07:59] LABS: Basophils % (A) 0 %; CHCM 33.3; Eosinophils % (A) 0 %; HCT 47.2 % (39.0-53.0); Luc # (Auto) 0.04; Luc % (Auto) 0; Lymphocytes # (A) 0.5 k/uL (1.0-4.8); Lymphocytes % (A) 5 %; MCH 33.5 pg (25.0-35.0); MCHC 31.7 g/dL (31.0-37.0); MCV 105.7 fL (80.0-100.0); Macrocytosis Moderate; Mean Platelet Volume 7.7; Monocytes # (A) 0.3 k/uL (0-1.0); Monocytes % (A) 3 %; Neutrophils # (A) 8.2 k/uL (1.3-7.7); Neutrophils % (A) 91 %; RBC 4.46 m/uL (4.30-5.90); RDW 14.5 % (11.5-15.5); WBC 9.1 k/uL (3.8-10.6); WBC (Perox) 9.62
[2017-01-27] MEDS: BISACODYL 5 MG TABLET.DR PO SCH (08:06)
[2017-01-27] MEDS: PANTOPRAZOLE 40 MG TABLET PO SCH (08:07)
[2017-01-27] MEDS: CLOTRIMAZOLE/BETAMETH 1-0.05% CREAM 45 GM TUBE TOPICAL SCH ×2 (08:07→21:20)
[2017-01-27] MEDS: MULTIVITAMINS, THERA 1 EACH TAB PO SCH (08:07)
[2017-01-27] MEDS: ATORVASTATIN 20 MG TAB PO SCH (08:07)
[2017-01-27] MEDS: CYANOCOBALAMIN 500 MCG TAB PO SCH (08:07)
[2017-01-27] MEDS: GABAPENTIN 300 MG CAP PO SCH ×3 (08:07→20:59)
[2017-01-27] MEDS: FINASTERIDE 5 MG TAB PO SCH (08:07)
[2017-01-27] MEDS: APIXABAN 5 MG TAB PO SCH ×2 (08:07→20:59)
[2017-01-27] MEDS: LISINOPRIL 2.5 MG TAB PO SCH (08:07)
[2017-01-27 08:45] LABS: Anion Gap 7 mmol/L; Blood Urea Nitrogen 15 mg/dL (9-20); Calcium 8.1 mg/dL (8.4-10.2); Carbon Dioxide 26 mmol/L (22-30); Chloride 107 mmol/L (98-107); Glucose 158 mg/dL (74-99); Non-African American GFR(MDRD) >60 (>60 ml/min/1.73 sqM); Sodium 140 mmol/L (137-145)
[2017-01-27] MEDS: IPRATROPIUM-ALBUTEROL 3 ML NEB INHALATION SCH ×4 (09:06→21:27)
--- NOTE | 2017-01-27 10:45 | P.PN ---
Subjective Progress Note Date: 01/27/17 Principal diagnosis: Acute tracheobronchitis, acute hypoxic respiratory failure This is a 76-year-old gentleman who follows with Dr. Keita as his primary care physician. He is a lifelong nonsmoker. No documented pulmonary disease. 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 The patient presented here yesterday after sustaining a fall at home. He states he was transferring from the bed to the chair and the weakness caused him to fall. He denies any injury. He also states he had been having shortness of breath, cough and congestion for approximately 1 week prior to his arrival. On and off with chills. Occasional productive cough of yellow sputum. He did have a T-max of 100.0. His chest x-ray shows evidence of chronic changes but no acute cardiopulmonary process. He is maintaining O2 saturations in the upper 90s on 3 L/m per nasal cannula. Currently afebrile. No leukocytosis. Hemodynamically stable. Urine and blood cultures are pending. Influenza screen negative. On 01/26/2017 patient is reevaluated. He remains quite weak. He had 4 episodes of emesis this morning, he was given IV anti-emetics. Lungs sounds are diminished air entry bilaterally, no wheezes or rhonchi. Patient has a loose nonproductive cough. Continues on 2 L oxygen per nasal cannula, no febrile episodes. Continues on Eliquis with a recent history of PEs. He states he did sit up in the chair for a period of time yesterday. Microbiology results have been reviewed and have been negative so far. Patient continues on Levaquin for antibiotic coverage. On 01/27/2017 patient is reevaluated. He states his breathing has improved somewhat although he continues with congested nonproductive cough. He continues on room air with saturation around 94%. He has been afebrile. Lung sounds are positive for scattered rhonchi, but good air entry bilaterally. Microbiology results have been reviewed and are negative so far. Patient continues on Levaquin for empiric antibiotic coverage. No episodes of nausea vomiting today. He is currently reviewing his options for discharge to rehabilitation facility for his generalized weakness. Objective - Vital Signs Vital signs: Vital Signs Temp 96.4 F L 01/27/17 07:00 Pulse 95 01/27/17 09:17 Resp 16 01/27/17 07:00 BP 134/65 01/27/17 07:00 Pulse Ox 94 L 01/27/17 07:00 Intake & Output 01/26/17 01/27/17 01/27/17 18:59 06:59 18:59 Output Total 250 400 200 Balance -250 -400 -200 Output: Urine 250 400 200 Other: Voiding Method Urinal Urinal # Voids 2 1 1 - Exam GENERAL EXAM: Alert, active, comfortable in no apparent distress. HEAD: Normocephalic. EYES: Normal reaction of pupils, equal size. NOSE: Clear with pink turbinates. THROAT: No erythema or exudates. NECK: No masses, no JVD. CHEST: No chest wall deformity. LUNGS: Equal air entry with few scattered rhonchi. CVS: S1 and S2 normal with no audible murmur, regular rhythm. ABDOMEN: No hepatosplenomegaly, normal bowel sounds, no guarding or rigidity. SPINE: No scoliosis or deformity SKIN: No rashes CENTRAL NERVOUS SYSTEM: No focal deficits, tone is normal in all 4 extremities. EXTREMITIES: There is no peripheral edema. No clubbing, no cyanosis. Peripheral pulses are intact. - Labs CBC & Chem 7: 01/27/17 07:46 01/27/17 07:46 Labs: Abnormal Lab Results - Last 24 Hours (Table) 01/27/17 01/27/17 Range/Units 07:46 07:46 MCV 105.7 H (80.0-100.0) fL Neutrophils # 8.2 H (1.3-7.7) k/uL Lymphocytes # 0.5 L (1.0-4.8) k/uL Glucose 158 H (74-99) mg/dL Calcium 8.1 L (8.4-10.2) mg/dL Microbiology - Last 24 Hours (Table) 01/24/17 16:18 Blood Culture - Preliminary Blood No Growth after 48 hours Assessment and Plan Plan: Assessment and Plan Plan: impression: #1 Fall without injury secondary to lower extremity weakness, chronic #2 Acute tracheobronchitis without clear evidence of pneumonia #3 Acute hypoxic respiratory failure secondary to above. 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 Currently maintained on apixaban with lifelong anticoagulation. #5 Hypertension. #6 Hyperlipidemia. #7 Degenerative disc disease with previous cervical spine surgery. #8 Obstructive sleep apnea but no longer wear CPAP in the outpatient setting. #9 History of shingles. #10 History of nephrolithiasis status post lithotripsy. Plan: The patient was seen and evaluated by Dr. Clinton. Continue with empiric antibiotics in the form of Levaquin, IV steroids and nebulized treatments. Unable to produce a sputum sample , blood cultures and urine culture show no growth . He remains anticoagulated with the apixaban. He is on Protonix for GI prophylaxis. Physical therapy is working with the patient. Patient is considering subacute rehab placement for his generalized weakness. Making improvement in his pulmonary status. We will increase his activity as tolerated. We'll continue to follow. I performed a history & physical examination of the patient and discussed their management with my nurse practitioner, Nuria Gann. I reviewed the nurse practitioner's note and agree with the documented findings and plan of care. Lung sounds good air entry bilaterally, with scattered rhonchi at posterior bases. I attest to the documentation by the nurse practitioner
[2017-01-27 14:17] VITALS: BMI 32.3
[2017-01-27] MEDS: methylPREDNISolone 4 MG TAB TAPER PO SCH (16:25)
[2017-01-27] MEDS: LEVOFLOXACIN 500 MG TAB PO SCH (16:26)
--- NOTE | 2017-01-28 00:45 | P.PN ---
Subjective Progress Note Date: 01/27/17 Principal diagnosis: Status post fall 76-year-old admitted after a fall and fever and patient is being treated for bronchitis beyond which there is no obvious source of infection that was found patient is feeling little bit better today. Physical therapy will valid the patient will continue the antibiotics. TSH within normal limits and spit discharged to rehab. On 01/26/2017 Patient had episodes of vomiting today. Denied any chest pain or worsening short of breath. Able to sit in the chair. Still very weak and is participating in physical therapy. Anticipate discharge to rehab. No fever no chills. 01/27/2017 Patient denied any fever or chills. No worsening short of breath. Patient continues to have dry cough. And also feels weak. Sputum sample could not be obtained from the patient. PTOT is following and possible transfer to rehab. Constitutional: As mentioned in HPI Cardio vascular: denied any chest pain, palpitations Gastrointestinal denied any nausea vomiting Pulmonary: Denied any shortness of breath cough Neurologic denied any new focal deficits Current medications reviewed. Objective - Vital Signs Vital signs: Vital Signs Temp 98.5 F 01/27/17 16:33 Pulse 102 H 01/27/17 21:39 Resp 18 01/27/17 17:30 BP 127/72 01/27/17 16:33 Pulse Ox 95 01/27/17 16:33 Intake & Output 01/27/17 01/27/17 01/28/17 06:59 18:59 06:59 Intake Total 1200 Output Total 400 200 Balance -400 1000 Weight 90.718 kg Intake: Oral 1200 Output: Urine 400 200 Other: Voiding Method Urinal # Voids 1 3 - Exam GENERAL: The patient is alert and oriented x3, not in any acute distress. Well developed, well nourished. HEENT: Pupils are round and equally reacting to light. EOMI. No scleral icterus. No conjunctival pallor. Normocephalic, atraumatic. No pharyngeal erythema. No thyromegaly. CARDIOVASCULAR: S1 and S2 present. No murmurs, rubs, or gallops. PULMONARY: Chest is clear to auscultation, no wheezing . Scattered crackles. ABDOMEN: Soft, nontender, nondistended, normoactive bowel sounds. No palpable organomegaly. MUSCULOSKELETAL: No joint swelling or deformity. EXTREMITIES: No cyanosis, clubbing, or pedal edema. NEUROLOGICAL: Gross neurological examination did not reveal any focal deficits. Patient does have generalized weakness SKIN: No rashes. - Labs CBC & Chem 7: 01/27/17 07:46 01/27/17 07:46 Labs: Abnormal Lab Results - Last 24 Hours (Table) 01/27/17 01/27/17 Range/Units 07:46 07:46 MCV 105.7 H (80.0-100.0) fL Neutrophils # 8.2 H (1.3-7.7) k/uL Lymphocytes # 0.5 L (1.0-4.8) k/uL Glucose 158 H (74-99) mg/dL Calcium 8.1 L (8.4-10.2) mg/dL Microbiology - Last 24 Hours (Table) 01/24/17 16:18 Blood Culture - Preliminary Blood No Growth after 72 hours Assessment and Plan Assessment: #1 Fall without injury secondary to lower extremity weakness, chronic #2 Acute tracheobronchitis without clear evidence of pneumonia #3 Acute hypoxic respiratory failure secondary to above. 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 Currently maintained on apixaban with lifelong anticoagulation. #5 Hypertension. #6 Hyperlipidemia. #7 Degenerative disc disease with previous cervical spine surgery. #8 Obstructive sleep apnea but no longer wear CPAP in the outpatient setting. #9 History of shingles. #10 History of nephrolithiasis status post lithotripsy. Plan: Patient will be continue on antibiotics PT and OT evaluation possibly of discharge to subacute rehabitation. Lasix was discontinued, lisinopril dose cut down to half. Blood culture and urine culture is negative. Continue with breathing treatments and steroids and antibiotics.
[2017-01-28 07:29] LABS: Basophils % (A) 0 %; CH 33.5; CHCM 32.9; Eosinophils % (A) 0 %; HCT 46.5 % (39.0-53.0); HDW 2.85; HGB 15.1 gm/dL (13.0-17.5); Luc # (Auto) 0.06; Luc % (Auto) 1; Lymphocytes # (A) 0.8 k/uL (1.0-4.8); Lymphocytes % (A) 8 %; MCH 33.2 pg (25.0-35.0); MCHC 32.5 g/dL (31.0-37.0); MCV 102.4 fL (80.0-100.0); Macrocytosis Slight; Monocytes # (A) 0.4 k/uL (0-1.0); Monocytes % (A) 4 %; Neutrophils % (A) 87 %; RBC 4.53 m/uL (4.30-5.90); RDW 13.2 % (11.5-15.5); WBC 10.3 k/uL (3.8-10.6); WBC (Perox) 10.14
[2017-01-28] MEDS: IPRATROPIUM-ALBUTEROL 3 ML NEB INHALATION SCH ×3 (07:47→15:13)
[2017-01-28 07:48] LABS: Anion Gap 8 mmol/L; Blood Urea Nitrogen 14 mg/dL (9-20); Calcium 8.7 mg/dL (8.4-10.2); Carbon Dioxide 30 mmol/L (22-30); Chloride 104 mmol/L (98-107); Glucose 127 mg/dL (74-99); Non-African American GFR(MDRD) >60 (>60 ml/min/1.73 sqM); Potassium 4.8 mmol/L (3.5-5.1); Sodium 142 mmol/L (137-145)
[2017-01-28] MEDS: APIXABAN 5 MG TAB PO SCH (08:52)
[2017-01-28] MEDS: PANTOPRAZOLE 40 MG TABLET PO SCH (08:52)
[2017-01-28] MEDS: BISACODYL 5 MG TABLET.DR PO SCH (08:53)
[2017-01-28] MEDS: CLOTRIMAZOLE/BETAMETH 1-0.05% CREAM 45 GM TUBE TOPICAL SCH (08:53)
[2017-01-28] MEDS: ATORVASTATIN 20 MG TAB PO SCH (08:53)
[2017-01-28] MEDS: FINASTERIDE 5 MG TAB PO SCH (08:53)
[2017-01-28] MEDS: LISINOPRIL 2.5 MG TAB PO SCH (08:54)
[2017-01-28] MEDS: methylPREDNISolone 4 MG TAB TAPER PO SCH (08:54)
[2017-01-28] MEDS: GABAPENTIN 300 MG CAP PO SCH ×2 (08:54→15:14)
--- NOTE | 2017-01-28 10:26 | P.PN ---
Subjective Progress Note Date: 01/28/17 Principal diagnosis: Acute tracheobronchitis, acute hypoxic respiratory failure This is a 76-year-old gentleman who follows with Dr. Keita as his primary care physician. He is a lifelong nonsmoker. No documented pulmonary disease. 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 The patient presented here yesterday after sustaining a fall at home. He states he was transferring from the bed to the chair and the weakness caused him to fall. He denies any injury. He also states he had been having shortness of breath, cough and congestion for approximately 1 week prior to his arrival. On and off with chills. Occasional productive cough of yellow sputum. He did have a T-max of 100.0. His chest x-ray shows evidence of chronic changes but no acute cardiopulmonary process. He is maintaining O2 saturations in the upper 90s on 3 L/m per nasal cannula. Currently afebrile. No leukocytosis. Hemodynamically stable. Urine and blood cultures are pending. Influenza screen negative. On 01/26/2017 patient is reevaluated. He remains quite weak. He had 4 episodes of emesis this morning, he was given IV anti-emetics. Lungs sounds are diminished air entry bilaterally, no wheezes or rhonchi. Patient has a loose nonproductive cough. Continues on 2 L oxygen per nasal cannula, no febrile episodes. Continues on Eliquis with a recent history of PEs. He states he did sit up in the chair for a period of time yesterday. Microbiology results have been reviewed and have been negative so far. Patient continues on Levaquin for antibiotic coverage. On 01/27/2017 patient is reevaluated. He states his breathing has improved somewhat although he continues with congested nonproductive cough. He continues on room air with saturation around 94%. He has been afebrile. Lung sounds are positive for scattered rhonchi, but good air entry bilaterally. Microbiology results have been reviewed and are negative so far. Patient continues on Levaquin for empiric antibiotic coverage. No episodes of nausea vomiting today. He is currently reviewing his options for discharge to rehabilitation facility for his generalized weakness. On 01/28/2017 patient seen in follow-up. Continues with loose nonproductive cough, some scattered rhonchi bilaterally. No wheezing, no rales. Patient remains on room air, with O2 saturation at 93-95%. Afebrile. Can be cleared for discharge from pulmonary standpoint on Levaquin and Medrol Dosepak. Patient decided to go home after discharge, instead of the subacute rehab. He has been getting up to the chair and sit for periods of time during the day. He resides at home with his . Objective - Vital Signs Vital signs: Vital Signs Temp 98.0 F 01/28/17 07:00 Pulse 92 01/28/17 07:00 Resp 16 01/28/17 07:00 BP 156/91 01/28/17 07:00 Pulse Ox 93 L 01/28/17 07:48 Intake & Output 01/27/17 01/28/17 01/28/17 18:59 06:59 18:59 Intake Total 1200 Output Total 200 1050 Balance 1000 -1050 Weight 90.718 kg Intake: Oral 1200 Output: Urine 200 1050 Other: Voiding Method Urinal # Voids 3 - Exam GENERAL EXAM: Alert, active, comfortable in no apparent distress. HEAD: Normocephalic. EYES: Normal reaction of pupils, equal size. NOSE: Clear with pink turbinates. THROAT: No erythema or exudates. NECK: No masses, no JVD. CHEST: No chest wall deformity. LUNGS: Equal air entry with few scattered rhonchi. CVS: S1 and S2 normal with no audible murmur, regular rhythm. ABDOMEN: No hepatosplenomegaly, normal bowel sounds, no guarding or rigidity. SPINE: No scoliosis or deformity SKIN: No rashes CENTRAL NERVOUS SYSTEM: No focal deficits, tone is normal in all 4 extremities. EXTREMITIES: There is no peripheral edema. No clubbing, no cyanosis. Peripheral pulses are intact. - Labs CBC & Chem 7: 01/28/17 07:05 01/28/17 07:05 Labs: Abnormal Lab Results - Last 24 Hours (Table) 01/28/17 01/28/17 Range/Units 07:05 07:05 MCV 102.4 H (80.0-100.0) fL Neutrophils # 9.0 H (1.3-7.7) k/uL Lymphocytes # 0.8 L (1.0-4.8) k/uL Glucose 127 H (74-99) mg/dL Microbiology - Last 24 Hours (Table) 01/24/17 16:18 Blood Culture - Preliminary Blood No Growth after 72 hours Assessment and Plan Plan: Assessment and Plan Plan: impression: #1 Fall without injury secondary to lower extremity weakness, chronic #2 Acute tracheobronchitis without clear evidence of pneumonia #3 Acute hypoxic respiratory failure secondary to above. 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 Currently maintained on apixaban with lifelong anticoagulation. #5 Hypertension. #6 Hyperlipidemia. #7 Degenerative disc disease with previous cervical spine surgery. #8 Obstructive sleep apnea but no longer wear CPAP in the outpatient setting. #9 History of shingles. #10 History of nephrolithiasis status post lithotripsy. Plan: The patient was seen and evaluated by Dr. Clinton. Blood cultures and urine culture show no growth . He remains anticoagulated with the apixaban. He is on Protonix for GI prophylaxis. Physical therapy is working with the patient. Patient is stable for discharge home from pulmonary standpoint on Levaquin and Medrol Dosepak. Follow-up with Dr. Keita in the office on February 10 at 1415. I performed a history & physical examination of the patient and discussed their management with my nurse practitioner, Nuria Gann. I reviewed the nurse practitioner's note and agree with the documented findings and plan of care. Lung sounds good air entry bilaterally, with scattered rhonchi at posterior bases. Stable for discharge. I attest to the documentation by the nurse practitioner
[2017-01-28] MEDS: LEVOFLOXACIN 500 MG TAB PO SCH (12:45)
[2017-01-28] MEDS: CYANOCOBALAMIN 500 MCG TAB PO SCH (12:45)
[2017-01-28] MEDS: MULTIVITAMINS, THERA 1 EACH TAB PO SCH (12:45)
[2017-01-28 15:40] VITALS: BP 150/91; PULSE 105; RESP 20; TEMP 98.1
--- NOTE | 2017-01-28 16:20 | P.DS ---
Providers Date of admission: 01/24/17 18:59 Expected date of discharge: 01/28/17 Attending physician: Dillan Schaefer Consults: 01/24/17 17:45 Consult Physician Routine Consulting Provider: Bobby Keita Reason/Comments: pneumonia?? Do you want consulting provider notified?: Yes Primary care physician: Bobby Keita [facility] Course: Final Diagnoses: #1 Fall without injury secondary to lower extremity weakness, chronic #2 Acute tracheobronchitis without clear evidence of pneumonia #3 Acute hypoxic respiratory failure secondary to above. 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 Currently maintained on apixaban with lifelong anticoagulation. #5 Hypertension. #6 Hyperlipidemia. #7 Degenerative disc disease with previous cervical spine surgery. #8 Obstructive sleep apnea but no longer wear CPAP in the outpatient setting. #9 History of shingles. #10 History of nephrolithiasis status post lithotripsy. Hospital course: This is a 76-year-old admitted after a fall , with fever. Treated for bronchitis beyond which there is no obvious source of infection that was found. Evaluated by pulmonary. Maintained on IV antibiotics, nebulized bronchodilators and steroids. Significant clinical improvement. But will require oxygen upon discharge as patient desats to 75% on room air after ambulation. Evaluated by physical therapy and subacute rehab recommended. Patient unable to attend subacute rehab as he states his has beginning stages of dementia and unable to stay home alone. Cleared by pulmonary for discharge. Patient is being discharged home in a stable condition with guarded prognosis. The impression and plan of care has been dictated as directed. : I performed a history and examination of this patient, discussed the same with the dictator. I agree with the dictator's note ,documented as a scribe. Any additional findings or plans will be noted. Patient Condition at Discharge: Stable Plan - Discharge Summary New Discharge Prescriptions: New Levofloxacin [Levaquin] 500 mg PO DAILY@1600 #7 tab methylPREDNISolone Dose Pack [Medrol Dose Pack] 4 mg PO DIRECTED #21 package Pantoprazole [Protonix] 40 mg PO -BRKFST #15 tablet. Albuterol Inhaler [Ventolin Hfa Inhaler] 2 puff INHALATION Q6HR PRN #1 inhaler PRN Reason: Shortness Of Breath Continue Gabapentin [Neurontin] 300 mg PO Q8H Clotrimazole/Betameth Cream [Lotrisone] 1 applic TOPICAL BID Metaxalone 800 mg PO BID PRN PRN Reason: NECK PAIN Furosemide [Lasix] 20 mg PO QAM Finasteride [Proscar] 5 mg PO QAM Rosuvastatin [Crestor] 10 mg PO DAILY Multivitamins, Thera [Multivitamin (formulary)] 1 tab PO DAILY Bisacodyl [Dulcolax] 5 mg PO DAILY Enalapril [Vasotec] 2.5 mg PO DAILY HYDROcodone/APAP 7.5-325MG [[place] 7.5-325] 1 tab PO Q6HR PRN PRN Reason: Pain Promethazine 6.25MG/5Ml [Phenergan Syrup] 5 - 10 ml PO Q6H PRN PRN Reason: Cough Cyanocobalamin (Vitamin B-12) [Vitamin B-12] 1,000 mcg PO DAILY Apixaban [Eliquis] 5 mg PO BID Discharge Medication List Clotrimazole/Betameth Cream [Lotrisone] 1 applic TOPICAL BID 01/17/15 [History] Gabapentin [Neurontin] 300 mg PO Q8H 01/17/15 [History] Metaxalone 800 mg PO BID PRN 01/17/15 [History] Finasteride [Proscar] 5 mg PO QAM 12/14/15 [History] Furosemide [Lasix] 20 mg PO QAM 12/14/15 [History] Bisacodyl [Dulcolax] 5 mg PO DAILY 03/09/16 [History] Enalapril [Vasotec] 2.5 mg PO DAILY 03/09/16 [History] Multivitamins, Thera [Multivitamin (formulary)] 1 tab PO DAILY 03/09/16 [History ] Rosuvastatin [Crestor] 10 mg PO DAILY 03/09/16 [History] Apixaban [Eliquis] 5 mg PO BID 01/24/17 [History] Cyanocobalamin (Vitamin B-12) [Vitamin B-12] 1,000 mcg PO DAILY 01/24/17 [ History] HYDROcodone/APAP 7.5-325MG [[place] 7.5-325] 1 tab PO Q6HR PRN 01/24/17 [History] Promethazine 6.25MG/5Ml [Phenergan Syrup] 5 - 10 ml PO Q6H PRN 01/24/17 [History ] Albuterol Inhaler [Ventolin Hfa Inhaler] 2 puff INHALATION Q6HR PRN #1 inhaler 01/28/17 [Rx] Levofloxacin [Levaquin] 500 mg PO DAILY@1600 #7 tab 01/28/17 [Rx] Pantoprazole [Protonix] 40 mg PO AC-BRKFST #15 tablet. 01/28/17 [Rx] methylPREDNISolone Dose Pack [Medrol Dose Pack] 4 mg PO DIRECTED #21 package 01/28/17 [Rx] Follow up Appointment(s)/Referral(s): Bobby Keita DO [Primary Care Provider] - 02/10/17 2:15 pm [facility] Visiting Nurse, [NON-STAFF] - Patient Instructions/Handouts: Pneumonia (DC) Activity/Diet/Wound Care/Special Instructions: Cardiac diet 2Liters nasal cannula recommended and script given. Limited activity until follow up. Discharge Disposition: HOME WITH HOME HEALTH SERVICES
== END 2017-01-28 16:03 | disposition home health service (06) | DRG 190 ==
LOC: EC 15:39 → 4MS4W 18:59
PROVIDERS: ADMIT Hospitalist; ATTEND Hospitalist
DX: J44.0 Chronic obstructive pulmonary disease with (acute) lower respiratory infection (principal); J96.01 Acute respiratory failure with hypoxia; I10 Essential (primary) hypertension; E78.5 Hyperlipidemia, unspecified; J20.9 Acute bronchitis, unspecified; G47.33 Obstructive sleep apnea (adult) (pediatric); K21.9 Gastro-esophageal reflux disease without esophagitis; W19.XXXA Unspecified fall, initial encounter; Y92.009 Unspecified place in unspecified non-institutional (private) residence as the place of occurrence of the external cause; Z79.01 Long term (current) use of anticoagulants; Z79.52 Long term (current) use of systemic steroids; Z79.899 Other long term (current) drug therapy; Z80.0 Family history of malignant neoplasm of digestive organs; Z82.49 Family history of ischemic heart disease and other diseases of the circulatory system; Z86.19 Personal history of other infectious and parasitic diseases; Z86.711 Personal history of pulmonary embolism; Z86.718 Personal history of other venous thrombosis and embolism; Z87.442 Personal history of urinary calculi; Z96.642 Presence of left artificial hip joint; Z98.1 Arthrodesis status
CPT/HCPCS: 36415; 51701; 71020; 80048; 80053; 81001; 83605; 84443; 84484; 85025; 85610; 85730; 87040; 87086; 87502; 93005; 94640; 94760; 96365; 99285

== ENCOUNTER → 2017-07-29 | Outpatient (CLI) | payer MEDICARE, OTHER ==
[2017-07-29 12:08] LABS: Basophils # (A) 0.1 k/uL (0-0.2); Basophils % (A) 1 %; Eosinophils # (A) 0.2 k/uL (0-0.7); Eosinophils % (A) 4 %; HCT 49.4 % (39.0-53.0); HGB 16.6 gm/dL (13.0-17.5); Lymphocytes # (A) 1.2 k/uL (1.0-4.8); Lymphocytes % (A) 25 %; MCH 33.6 pg (25.0-35.0); MCHC 33.6 g/dL (31.0-37.0); MCV 99.9 fL (80.0-100.0); Mean Platelet Volume 7.7; Monocytes # (A) 0.3 k/uL (0-1.0); Monocytes % (A) 5 %; Neutrophils # (A) 3.1 k/uL (1.3-7.7); Neutrophils % (A) 63 %; Platelet Count 233 k/uL (150-450); RBC 4.95 m/uL (4.30-5.90); RDW 13.7 % (11.5-15.5); WBC 4.9 k/uL (3.8-10.6)
[2017-07-29 12:40] LABS: ALT 20 U/L (21-72); AST 17 U/L (17-59); Albumin 4.1 g/dL (3.5-5.0); Alkaline Phosphatase 60 U/L (38-126); Anion Gap 13 mmol/L; Blood Urea Nitrogen 15 mg/dL (9-20); C Reactive Protein <5.0 mg/L (<10.0); Carbon Dioxide 28 mmol/L (22-30); Chloride 104 mmol/L (98-107); Cholesterol 180 mg/dL (<200); Glucose 92 mg/dL (74-99); HDL Cholesterol 37 mg/dL (40-60); LDL Cholesterol,Calculated 108 mg/dL (0-99); Potassium 4.4 mmol/L (3.5-5.1); Sodium 145 mmol/L (137-145); Total Bilirubin 0.9 mg/dL (0.2-1.3); Total Protein 7.1 g/dL (6.3-8.2); Triglycerides 175 mg/dL (<150)
[2017-07-29 12:50] LABS: T4, Free (Free Thyroxine) 1.29 ng/dL (0.78-2.19)
[2017-07-29 13:04] LABS: PSA Annual Screen 0.44 ng/mL (0.00-4.00)
[2017-07-29 14:45] LABS: Erythrocyte Sedimentation Rate 12 mm/hr (0-15)
[2017-07-29 17:14] LABS: Hemoglobin A1C 5.6 % (4.0-6.0)
== END | disposition home or self-care (01) ==
LOC: LABWHC1 11:20
PROVIDERS: ATTEND Internal Medicine Critical Care Medicine
DX: I10 Essential (primary) hypertension (principal); I82.409 Acute embolism and thrombosis of unspecified deep veins of unspecified lower extremity; E78.5 Hyperlipidemia, unspecified; D68.59 Other primary thrombophilia
CPT/HCPCS: 84439; 80061; 80053; 85652; 82533; 84443; 85025; 86140; 82306; 83036; 36415; G0103

== ENCOUNTER 2018-03-13 11:05 | Inpatient (IN) | payer MEDICARE, OTHER ==
[2018-03-13] MEDS ORDERED: DIPH,PERTUS(ACELL)TETVAC-LF 0.5 ML VIAL IM ONE (12:10)
[2018-03-13] MEDS ORDERED: ACETAMINOPHEN IV (For NPO) 1,000 MG in EMPTY BAG 1 BAG IVPB ONE (12:13)
--- NOTE | 2018-03-13 12:16 | ED ---
General Adult HPI - General Chief complaint: Weakness Stated complaint: weakness Source: patient, EMS Mode of arrival: EMS Limitations: no limitations - History of Present Illness Initial comments: Dictation was produced using [email or web address] dictation software. please excuse any grammatical, word or spelling errors. Chief Complaint: 77-year-old male presents with 1 day history of malaise and syncope. History of Present Illness: 69-year-old male presents with 1 day history of malaise and presyncope. Patient states that he has been having some sore throat. Denies any overt sick contacts. Denies any shortness of breath or abdominal pain. Patient states he was walking in his house today when he became very lightheaded causing him to fall. He did say he strike his left hip. Patient has no other pain complaints. He did state he suffered an abrasion to his left hip. Patient has a lot of medical problems. He is on eliquis for DVT prophylaxis. Last week patient had oral surgery performed for his right upper maxillary tooth. States that the procedure went well. Patient has any nausea, vomiting or diarrhea. Denies any abdominal pain. Denies any chest pain. The ROS documented in this emergency department record has been reviewed and confirmed by me. Those systems with pertinent positive or negative responses have been documented in the HPI. All other systems are other negative and/or noncontributory. - Related Data Home Medications Medication Instructions Recorded Confirmed Gabapentin [Neurontin] 600 mg PO TID@0000,0800,1600 01/17/15 03/13/18 Metaxalone 800 mg PO DAILY@0000 01/17/15 03/13/18 Finasteride [Proscar] 5 mg PO DAILY@1200 12/14/15 03/13/18 Furosemide [Lasix] 20 mg PO DAILY PRN 12/14/15 03/13/18 Bisacodyl [Dulcolax] 5 mg PO DAILY PRN 03/09/16 03/13/18 Enalapril [Vasotec] 2.5 mg PO DAILY@1200 03/09/16 03/13/18 Apixaban [Eliquis] 5 mg PO BID@0000,1200 01/24/17 03/13/18 HYDROcodone/APAP 7.5-325MG [[place] 1 tab PO Q6HR PRN 01/24/17 03/13/18 7.5-325] Allergies Allergy/AdvReac Type Severity Reaction Status Date / Time Penicillins Allergy Unknown. Verified 03/13/18 12:31 INJECTION FORM ONLY Review of Systems ROS Statement: Those systems with pertinent positive or pertinent negative responses have been documented in the HPI. ROS Other: All systems not noted in ROS Statement are negative. 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, CLEMENTINE but no longer wears CPAP due to significant weight loss and the use of CPAP mask became painful due to R head neuropathy,Pneumonia in 2009, COPD-mild, 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 Past Psychological History: No Psychological Hx Reported Smoking Status: Never smoker Past Alcohol Use History: Occasional Past Drug Use History: None Reported - Past Family History Father Family Medical History: Cancer Additional Family Medical History / Comment(s): Father had colon cancer. He of aortic aneurysm at age 92/93 yrs Mother Family Medical History: Coronary Artery Disease (CAD) Additional Family Medical History / Comment(s): Mother had heart issues and at age 75/76 yrs. General Exam - General Exam Comments Initial Comments: PHYSICAL EXAM: General Impression: Alert and oriented x3, not in acute distress HEENT: Normocephalic atraumatic, extra-ocular movements intact, pupils equal and reactive to light bilaterally, dry mucous membranes, erythematous posterior oropharynx Cardiovascular: Heart regular rate and rhythm, S1&S2 audible, no murmurs, rubs or gallops Chest: Lungs clear to auscultation bilaterally, no rhonchi, no wheeze, no rales Abdomen: Bowel sounds present, abdomen soft, non-tender, non-distended, no organomegaly Musculoskeletal: Pulses present and equal in all extremities, no peripheral edema Motor: Moves all extremities grossly, no motor deficits Neurological: CN II-XII grossly intact, no focal motor or sensory deficits noted Skin: Superficial abrasion to the left hip, extending from the left inguinal area to the left superior. Pelvis Psych: Normal affect and mood Limitations: no limitations Course Vital Signs 03/13/18 11:13 Temperature 100.6 F H Pulse Rate 112 H Respiratory 20 Rate Blood Pressure 134/93 O2 Sat by Pulse 95 Oximetry Medical Decision Making - Medical Decision Making ED course: 77-year-old male presents with syncopal episode and feelings of generalized malaise. Vital signs upon arrival shows temperature 100.6, heart rate of 112. Rest vital signs within normal limits laboratory evaluation obtained. CBC obtained showing no acute process. Coag panel is unremarkable. Metabolic panel shows lactic acidosis of 2.3. Glucose 130. Chest x-ray, pelvis x-ray and brain CT is unremarkable. The reading swabs and urine studies. SIRS/sepsis. At this point there is no clear source of patient's infectious symptoms. There is high clinical suspicion that patient 's symptoms are secondary to influenza versus strep pharyngitis. The cultures and urine cultures were obtained. Patient given intravenous fluids. Patient reevaluated with persistent symptoms. EKG interpretation: Ventricular rate 105, sinus tachycardia, VA interval 190, QS 124, QTC 494.. No VA prolongation, no QTC prolongation, no ST or T-wave changes noted. Overall, this EKG is unremarkable - Lab Data Result diagrams: 03/13/18 12:55 03/13/18 12:55 Lab Results 03/13/18 03/13/18 03/13/18 Range/Units 12:55 12:55 12:55 WBC 8.7 (3.8-10.6) k/uL RBC 5.13 (4.30-5.90) m/uL Hgb 17.4 (13.0-17.5) gm/dL Hct 52.8 (39.0-53.0) % MCV 102.9 H (80.0-100.0) fL MCH 33.9 (25.0-35.0) pg MCHC 32.9 (31.0-37.0) g/dL RDW 13.5 (11.5-15.5) % Plt Count 182 (150-450) k/uL Neutrophils % 87 % Lymphocytes % 5 % Monocytes % 6 % Eosinophils % 1 % Basophils % 1 % Neutrophils # 7.6 (1.3-7.7) k/uL Lymphocytes # 0.4 L (1.0-4.8) k/uL Monocytes # 0.5 (0-1.0) k/uL Eosinophils # 0.1 (0-0.7) k/uL Basophils # 0.1 (0-0.2) k/uL Macrocytosis Slight PT (9.0-12.0) sec INR (<1.2) APTT (22.0-30.0) sec Sodium 142 (137-145) mmol/L Potassium 4.4 (3.5-5.1) mmol/L Chloride 107 (98-107) mmol/L Carbon Dioxide 24 (22-30) mmol/L Anion Gap 11 mmol/L BUN 14 (9-20) mg/dL Creatinine 0.89 (0.66-1.25) mg/dL Est GFR (CKD-EPI)AfAm >90 (>60 ml/min/1.73 sqM) Est GFR (CKD-EPI)NonAf 82 (>60 ml/min/1.73 sqM) Glucose 130 H (74-99) mg/dL Plasma Lactic Acid Lan 2.3 H* (0.7-2.0) mmol/L Calcium 8.6 (8.4-10.2) mg/dL Total Bilirubin 1.3 (0.2-1.3) mg/dL AST 33 (17-59) U/L ALT 31 (21-72) U/L Alkaline Phosphatase 57 (38-126) U/L Total Protein 7.1 (6.3-8.2) g/dL Albumin 3.8 (3.5-5.0) g/dL 03/13/18 Range/Units 12:55 WBC (3.8-10.6) k/uL RBC (4.30-5.90) m/uL Hgb (13.0-17.5) gm/dL Hct (39.0-53.0) % MCV (80.0-100.0) fL MCH (25.0-35.0) pg MCHC (31.0-37.0) g/dL RDW (11.5-15.5) % Plt Count (150-450) k/uL Neutrophils % % Lymphocytes % % Monocytes % % Eosinophils % % Basophils % % Neutrophils # (1.3-7.7) k/uL Lymphocytes # (1.0-4.8) k/uL Monocytes # (0-1.0) k/uL Eosinophils # (0-0.7) k/uL Basophils # (0-0.2) k/uL Macrocytosis PT 11.3 (9.0-12.0) sec INR 1.2 H (<1.2) APTT 24.9 (22.0-30.0) sec Sodium (137-145) mmol/L Potassium (3.5-5.1) mmol/L Chloride (98-107) mmol/L Carbon Dioxide (22-30) mmol/L Anion Gap mmol/L BUN (9-20) mg/dL Creatinine (0.66-1.25) mg/dL Est GFR (CKD-EPI)AfAm (>60 ml/min/1.73 sqM) Est GFR (CKD-EPI)NonAf (>60 ml/min/1.73 sqM) Glucose (74-99) mg/dL Plasma Lactic Acid Lan (0.7-2.0) mmol/L Calcium (8.4-10.2) mg/dL Total Bilirubin (0.2-1.3) mg/dL AST (17-59) U/L ALT (21-72) U/L Alkaline Phosphatase (38-126) U/L Total Protein (6.3-8.2) g/dL Albumin (3.5-5.0) g/dL Disposition Clinical Impression: SIRS (systemic inflammatory response syndrome) Disposition: ADMITTED IP TO THIS HOSP Condition: Fair Referrals: Renan Chowdhury MD [Primary Care Provider] - 1-2 days Decision Time: 15:19
[2018-03-13] MEDS: SODIUM CHLORIDE 0.9% 500 ML 500 ML IV SCH (13:00)
[2018-03-13 13:09] LABS: Basophils # (A) 0.1 k/uL (0-0.2); Basophils % (A) 1 %; Eosinophils # (A) 0.1 k/uL (0-0.7); Eosinophils % (A) 1 %; HCT 52.8 % (39.0-53.0); HGB 17.4 gm/dL (13.0-17.5); Lymphocytes # (A) 0.4 k/uL (1.0-4.8); Lymphocytes % (A) 5 %; MCH 33.9 pg (25.0-35.0); MCHC 32.9 g/dL (31.0-37.0); MCV 102.9 fL (80.0-100.0); Macrocytosis Slight; Mean Platelet Volume 7.4; Monocytes # (A) 0.5 k/uL (0-1.0); Monocytes % (A) 6 %; Neutrophils # (A) 7.6 k/uL (1.3-7.7); Neutrophils % (A) 87 %; Platelet Count 182 k/uL (150-450); RBC 5.13 m/uL (4.30-5.90); RDW 13.5 % (11.5-15.5); WBC 8.7 k/uL (3.8-10.6)
[2018-03-13 13:16] LABS: ALT 31 U/L (21-72); AST 33 U/L (17-59); Albumin 3.8 g/dL (3.5-5.0); Alkaline Phosphatase 57 U/L (38-126); Anion Gap 11 mmol/L; Blood Urea Nitrogen 14 mg/dL (9-20); Calcium 8.6 mg/dL (8.4-10.2); Carbon Dioxide 24 mmol/L (22-30); Chloride 107 mmol/L (98-107); Glucose 130 mg/dL (74-99); Potassium 4.4 mmol/L (3.5-5.1); Sodium 142 mmol/L (137-145); Total Bilirubin 1.3 mg/dL (0.2-1.3); Total Protein 7.1 g/dL (6.3-8.2)
[2018-03-13 13:17] LABS: INR 1.2 (<1.2); Partial Thromboplastin Time 24.9 sec (22.0-30.0); Prothrombin Time 11.3 sec (9.0-12.0)
--- NOTE | 2018-03-13 13:46 | CT ---
EXAMINATION TYPE: CT brain wo con DATE OF EXAM: 03/13/2018 COMPARISON: 09/07/2015 HISTORY: generalized weakness, syncope CT DLP: 1133.[address] of the brain was performed. The ventricles, basal cisterns and sulci overlying the cerebral convexities demonstrate moderate enla rgement. There is no evidence for intracranial hemorrhage or sulcal effacement. There is decreased attenuation about the periventricular white matter and deep white matter of both c erebral hemispheres, compatible with chronic small vessel ischemia. Differential diagnosis does inclu de demyelination. No mass effects are seen.No midline shift. Osseous calvarium is intact. If symptoms persist consider MRI. IMPRESSION: 1. Age related atrophic and chronic small vessel ischemic change without acute intracranial process s een at this time.
--- NOTE | 2018-03-13 13:47 | XR ---
EXAMINATION TYPE: XR chest 2V DATE OF EXAM: 03/13/2018 COMPARISON: 01/24/2017 HISTORY: Shortness of breath TECHNIQUE: Frontal and lateral views of the chest are obtained. FINDINGS: Scattered senescent parenchymal changes noted. Hyperinflation compatible with COPD. No evidence for infiltrate. No evidence for atelectasis. Heart size is stable. Mediastinal structures are stable and grossly unremarkable. No evidence for hilar prominence. Degenerative changes dorsal spine. IMPRESSION: 1. No evidence for acute pulmonary disease.
--- NOTE | 2018-03-13 13:48 | XR ---
EXAMINATION TYPE: XR pelvis AP view DATE OF EXAM: 03/13/2018 CLINICAL HISTORY: pain TECHNIQUE: Single view the pelvis is submitted. FINDINGS: No evidence for fracture, dislocation or bony lesion. Mild right hip joint space narrowing . The left hip arthroplasty in place. SI joints appear symmetric. IMPRESSION: 1. No acute fracture or dislocation seen. ICD 10 NO FRACTURE, INITIAL EVALUATION
[2018-03-13] MEDS ORDERED: SODIUM CHLORIDE 0.9% 1,000 ML IV STA (15:13)
[2018-03-13] MEDS ORDERED: ACETAMINOPHEN TAB 325 MG TAB PO PRN (15:14)
[2018-03-13] MEDS ORDERED: NALOXONE 0.4 MG/ML 1 ML VIAL IV PRN (15:14)
[2018-03-13] MEDS: SODIUM CHLORIDE 0.9% 1,000 ML IV SCH (15:53)
[2018-03-13] MEDS ORDERED: AZITHROMYCIN 500 MG in DEXTROSE 5% IN WATER 250 ML IVPB STA ×4 (16:59→17:02)
[2018-03-13] MEDS ORDERED: AZITHROMYCIN 500 MG in SODIUM CHLORIDE 0.9% 250 ML IVPB STA (17:06)
[2018-03-13 17:17] VITALS: BMI 28.1
[2018-03-13 17:17] LABS: Appearance,Urine Clear (Clear); Bilirubin,Urine Negative (Negative); Blood,Urine Negative (Negative); Color,Urine Yellow; Glucose,Urine (UA) Negative (Negative); Ketones,Urine 1+ (Negative); Leukocyte Esterase,Urine Negative (Negative); Nitrite,Urine Negative (Negative); Protein,Urine Trace (Negative); Specific Gravity,Urine 1.018 (1.001-1.035)
[2018-03-13] MEDS ORDERED: BISACODYL 5 MG TABLET.DR PO PRN (17:51)
[2018-03-13] MEDS ORDERED: ALPRAZolam 0.25 MG TAB PO PRN (17:51)
[2018-03-13] MEDS ORDERED: FUROSEMIDE 20 MG TAB PO PRN (17:51)
[2018-03-13] MEDS ORDERED: hydrALAZINE HCL 20 MG/ML 1 ML VIAL IVP PRN (17:54)
[2018-03-13] MEDS ORDERED: MELATONIN 3 MG TABLET PO PRN (21:00)
[2018-03-13] MEDS ORDERED: HEPARIN SODIUM,PORCINE 5,000 UNIT/ML 1 ML VIAL SQ SCH (21:00)
--- NOTE | 2018-03-13 21:19 | HP ---
HISTORY AND PHYSICAL I am covering for Dr. Chowdhury. CHIEF COMPLAINTS: Fever. HISTORY OF PRESENT ILLNESS: This 77-year-old gentleman with a past medical history of multiple medical problems, including DVT, history of hyperlipidemia, hypertension, history of DJD, pulmonary embolism, sleep apnea, cholecystectomy, being followed by Dr. Chowdhury in the outpatient setting had dental extraction about a week ago by Dr. Corbett. Currently patient is having recurrent fevers, tiredness, weakness. Patient also had some nasal discharge. Influenza negative. The patient admitted for further evaluation and treatment. Chest x- ray shows minimal infiltrate. There is no history of any headache, loss of consciousness, seizures. PAST MEDICAL HISTORY: History of DVT, hypertension, hyperlipidemia, History of DJD, history of pulmonary embolus, sleep apnea, history of cholecystectomy. MEDICATIONS: Prior to admission include: 1. Metaxalone 800 mg p.o. daily. 2. [place] 7.5 q.6h p.r.n. 3. Neurontin 600 mg t.i.d. 4. Lasix 20 mg daily. 5. Proscar 5 mg daily. 7. Dulcolax 5 mg daily. 8. Eliquis 5 mg b.i.d. ALLERGIES: PENICILLIN. FAMILY HISTORY: History of cancer in the family. SOCIAL HISTORY: No history of smoking. No history of alcohol. REVIEW OF SYSTEMS: ENT: Diminished hearing and diminished vision. CARDIOVASCULAR: As mentioned earlier. RESPIRATORY: As mentioned earlier. GI: No nausea or vomiting. no dysuria. Nervous system: No numbness or weakness. Allergy/Immunology: No asthma or hayfever. Musculoskeletal as mentioned earlier. Hematology/Oncology: As mentioned earlier. Endocrine: No history of diabetes or hypothyroidism. CONSTITUTIONAL: As mentioned earlier. Dermatology: Negative. Rheumatology: Negative. Psychiatry: As mentioned earlier. PHYSICAL EXAMINATION: GENERAL: The patient is alert, oriented x3. VITAL SIGNS: Pulse 92, blood pressure 176/91, respiration 15, temp 98.1, pulse ox 97% on room air. T-max 100.6. HEENT: Conjunctivae normal. Oral mucosa moist. NECK is no jugular venous distention. No carotid bruit. No lymph node enlargement. CARDIOVASCULAR: S1, S2. RESPIRATION: Breath sounds diminished in the bases. A few scattered rhonchi and crackles. ABDOMEN: Soft, nontender. No mass palpable. LEGS: No edema. No swelling. NERVOUS SYSTEM: Higher functions as mentioned earlier. Moves all four extremities. No focal deficits. Lymphatics: No lymph nodes palpable in the neck, axillae or groin. SKIN: No ulcer, rash or bleeding. Oral cavity no evidence of any abscess formation at this time. ASSESSMENT: 1. Fever for evaluation. Rule out bilateral pneumonia, bronchopneumonia. Possible sepsis. 2. Possible upper respiratory infection. 3. History of recent dental extraction. 4. History of deep vein thrombosis. 5. Hypertension. 6. Hyperlipidemia. 7. History of degenerative joint disease. 8. History of pulmonary embolus. 9. Sleep apnea. 10.History of shingles. 11.History of cholecystectomy. 12.FULL CODE. RECOMMENDATIONS AND DISCUSSION: In this 77-year-old gentleman who presented with multiple complex medical issues , we will monitor the patient closely, continue the current medications, management and symptomatic treatment. We will continue the broad-spectrum IV antibiotics. Follow the cultures. DVT prophylaxis. Resume the home medications. Otherwise, overall prognosis guarded because of multiple complex medical issues. Further recommendations to follow. Dr. Chowdhury will follow. See orders for details. MMODL / IJN: [id number] / MTDD
[2018-03-13] MEDS: FAMOTIDINE 20 MG TAB PO SCH (22:31)
[2018-03-13] MEDS ORDERED: AZITHROMYCIN 500 MG in SODIUM CHLORIDE 0.9% 250 ML IVPB ONE (23:00)
[2018-03-13] MEDS ORDERED: ONDANSETRON 4 MG/2 ML VIAL IM STA ×2 (23:17→23:48)
[2018-03-13] MEDS: APIXABAN 5 MG TAB PO SCH (23:37)
[2018-03-14] MEDS: ONDANSETRON 4 MG/2 ML VIAL IVP PRN ×2 (00:09→09:45)
[2018-03-14] MEDS: CYCLOBENZAPRINE 10 MG TAB PO SCH ×2 (03:21→23:54)
[2018-03-14] MEDS: GABAPENTIN 300 MG CAP PO SCH ×4 (03:21→23:54)
[2018-03-14] MEDS: HYDROcodone/APAP 7.5-325MG 1 EACH TAB PO PRN ×2 (05:37→15:26)
[2018-03-14] MEDS: PANTOPRAZOLE 40 MG TABLET PO SCH (07:09)
[2018-03-14] MEDS: FAMOTIDINE 20 MG TAB PO SCH (07:09)
[2018-03-14] MEDS ORDERED: MAGNESIUM HYDROXIDE 2,400 MG/10 ML CUP PO PRN (08:00)
--- NOTE | 2018-03-14 08:00 | P.PN ---
Subjective Progress Note Date: 03/14/18 Principal diagnosis: This continue presently 77-year-old white male essentially admitted for systemic inflammatory response. Lactic acid was elevated. He states significant weakness and constipation since having dental extraction. Constipation is not as normal for the patient. We'll go ahead and give stool softener and milk of magnesia today. He has generalized weakness. Objective - Vital Signs Vital signs: Vital Signs Temp 99.0 F 03/14/18 07:00 Pulse 98 03/14/18 07:00 Resp 16 03/14/18 07:00 BP 138/81 03/14/18 07:00 Pulse Ox 95 03/14/18 07:00 Intake & Output 03/13/18 03/14/18 03/14/18 18:59 06:59 18:59 Intake Total 1040 Output Total 450 Balance 590 Weight 81.647 kg Intake: Intake, IV Titration 450 Amount Azithromycin 500 mg In 250 Sodium Chloride 0.9% 250 ml @ 250 mls/hr IVPB ONCE ONE Rx#:[id number] Sodium Chloride 0.9% 1, 200 000 ml @ 20 mls/hr IV . [facility] Rx#:[id number] Oral 590 Output: Urine 300 Emesis 150 Other: Voiding Method Urinal Urinal # Voids 2 - Constitutional General appearance: Present: average body habitus - EENT Eyes: Absent: abnormal pupil - Respiratory Respiratory: bilateral: CTA - Cardiovascular Rhythm: regular Heart sounds: normal: S1, S2 Abnormal Heart Sounds: Absent: S3 Gallop - Gastrointestinal Gastrointestinal Comment(s): Somewhat protuberant. General gastrointestinal: Present: soft Localized gastrointestinal: tender: LUQ, LLQ - Integumentary Integumentary: Absent: cellulitis - Labs CBC & Chem 7: 03/13/18 12:55 03/13/18 12:55 Labs: Abnormal Lab Results - Last 24 Hours (Table) 03/13/18 03/13/18 03/13/18 Range/Units 12:55 12:55 12:55 MCV 102.9 H (80.0-100.0) fL Lymphocytes # 0.4 L (1.0-4.8) k/uL INR (<1.2) Glucose 130 H (74-99) mg/dL Plasma Lactic Acid Lan 2.3 H* (0.7-2.0) mmol/L Urine Protein (Negative) Urine Ketones (Negative) 03/13/18 03/13/18 Range/Units 12:55 15:18 MCV (80.0-100.0) fL Lymphocytes # (1.0-4.8) k/uL INR 1.2 H (<1.2) Glucose (74-99) mg/dL Plasma Lactic Acid Lan (0.7-2.0) mmol/L Urine Protein Trace H (Negative) Urine Ketones 1+ H (Negative) Microbiology - Last 24 Hours (Table) 03/13/18 13:10 Group A Strep Throat Culture - Preliminary Throat 03/13/18 15:18 Urine Culture - Preliminary Urine,Voided Assessment and Plan (1) Constipation Current Visit: Yes Status: Acute Code(s): K59.00 - CONSTIPATION, UNSPECIFIED SNOMED Code(s): 22787472 (2) SIRS (systemic inflammatory response syndrome) Current Visit: Yes Status: Acute Code(s): R65.10 - SIRS OF NON-INFECTIOUS ORIGIN W/O ACUTE ORGAN DYSFUNCTION SNOMED Code(s): 139432078 (3) Fever Current Visit: No Status: Acute Code(s): R50.9 - FEVER, UNSPECIFIED SNOMED Code(s): 993893209 (4) Weakness Current Visit: No Status: Acute Code(s): R53.1 - WEAKNESS SNOMED Code(s): 31886713 Plan: Go ahead and give milk of magnesia. Continue Zithromax this time per IV hydration. Increase ambulation with his , who helps him at home most of the time. Check CBC and CMP in a.m. Time with Patient: Less than 30
[2018-03-14 09:15] LABS: Basophils % (A) 0 %; Eosinophils % (A) 0 %; HCT 47.9 % (39.0-53.0); HGB 15.8 gm/dL (13.0-17.5); Lymphocytes # (A) 0.7 k/uL (1.0-4.8); Lymphocytes % (A) 11 %; MCH 33.9 pg (25.0-35.0); MCV 102.8 fL (80.0-100.0); Macrocytosis Slight; Mean Platelet Volume 7.6; Monocytes # (A) 0.5 k/uL (0-1.0); Monocytes % (A) 8 %; Neutrophils # (A) 4.9 k/uL (1.3-7.7); Neutrophils % (A) 78 %; Platelet Count 175 k/uL (150-450); RBC 4.66 m/uL (4.30-5.90); RDW 13.7 % (11.5-15.5); WBC 6.3 k/uL (3.8-10.6)
[2018-03-14 09:27] LABS: Anion Gap 13 mmol/L; Blood Urea Nitrogen 10 mg/dL (9-20); Calcium 8.2 mg/dL (8.4-10.2); Carbon Dioxide 20 mmol/L (22-30); Chloride 108 mmol/L (98-107); Glucose 106 mg/dL (74-99); Potassium 4.2 mmol/L (3.5-5.1); Sodium 141 mmol/L (137-145)
[2018-03-14] MEDS: DOCUSATE 100 MG CAP PO SCH (09:31)
[2018-03-14] MEDS: APIXABAN 5 MG TAB PO SCH ×2 (12:14→23:54)
[2018-03-14] MEDS: FINASTERIDE 5 MG TAB PO SCH (12:14)
[2018-03-14] MEDS: LISINOPRIL 5 MG TAB PO SCH (12:15)
[2018-03-14] MEDS: AZITHROMYCIN 500 MG TAB PO SCH (17:08)
[2018-03-14] MEDS: SODIUM CHLORIDE 0.9% 1,000 ML IV SCH (17:08)
[2018-03-14] MEDS ORDERED: AZITHROMYCIN 500 MG in SODIUM CHLORIDE 0.9% 250 ML IVPB SCH (18:00)
[2018-03-15 07:56] LABS: HCT 45.8 % (39.0-53.0); HGB 15.2 gm/dL (13.0-17.5); MCH 34.2 pg (25.0-35.0); MCHC 33.3 g/dL (31.0-37.0); Macrocytosis Slight; Mean Platelet Volume 7.4; Platelet Count 179 k/uL (150-450); RBC 4.45 m/uL (4.30-5.90); RDW 13.6 % (11.5-15.5); WBC 4.8 k/uL (3.8-10.6)
[2018-03-15 08:04] LABS: ALT 28 U/L (21-72); AST 27 U/L (17-59); Albumin 3.1 g/dL (3.5-5.0); Alkaline Phosphatase 39 U/L (38-126); Anion Gap 7 mmol/L; Blood Urea Nitrogen 12 mg/dL (9-20); Carbon Dioxide 27 mmol/L (22-30); Chloride 106 mmol/L (98-107); Glucose 83 mg/dL (74-99); Sodium 140 mmol/L (137-145); Total Bilirubin 0.7 mg/dL (0.2-1.3)
[2018-03-15 08:27] LABS: Potassium 4.1 mmol/L (3.5-5.1)
[2018-03-15] MEDS: DOCUSATE 100 MG CAP PO SCH (09:50)
[2018-03-15] MEDS: PANTOPRAZOLE 40 MG TABLET PO SCH (09:50)
[2018-03-15] MEDS: GABAPENTIN 300 MG CAP PO SCH ×2 (09:50→17:11)
[2018-03-15] MEDS: LISINOPRIL 5 MG TAB PO SCH (11:43)
[2018-03-15] MEDS: APIXABAN 5 MG TAB PO SCH (11:43)
[2018-03-15] MEDS: FINASTERIDE 5 MG TAB PO SCH (11:43)
[2018-03-15] MEDS: SODIUM CHLORIDE 0.9% 1,000 ML IV SCH (11:44)
--- NOTE | 2018-03-15 13:42 | P.PN ---
Subjective Principal diagnosis: Ambulation difficulty. Constipation This is a continue progress on a 77-year-old white male essentially admitted for systemic inflammatory response syndrome with element of sepsis. Element of constipation as otherwise noted. He's having significant strength issues. We will start physical therapy and the patient wished to be discharged with home health and PT at home versus ECF/rehab. Objective - Vital Signs Vital signs: Vital Signs Temp 98.3 F 03/15/18 07:29 Pulse 97 03/15/18 07:29 Resp 17 03/15/18 07:30 BP 146/85 03/15/18 07:29 Pulse Ox 97 03/15/18 07:29 Intake & Output 03/14/18 03/15/18 03/15/18 18:59 06:59 18:59 Intake Total 260 Balance 260 Intake: Intake, IV Titration 260 Amount Sodium Chloride 0.9% 1, 260 000 ml @ 20 mls/hr IV . Q24H [facility] Rx#:[id number] Other: Voiding Method Urinal Urinal Urinal # Voids 2 1 1 - Constitutional General appearance: Present: average body habitus - EENT Eyes: Absent: abnormal pupil - Neck Neck: Absent: lymphadenopathy - Respiratory Respiratory: bilateral: CTA - Cardiovascular Rhythm: regular Heart sounds: normal: S1, S2 Abnormal Heart Sounds: Absent: S3 Gallop - Gastrointestinal General gastrointestinal: Present: soft. Absent: tenderness - Neurologic Neurologic: Present: CNII-XII intact - Musculoskeletal Musculoskeletal: Present: generalized weakness - Psychiatric Psychiatric: Present: A&O x's 3 - Labs CBC & Chem 7: 03/15/18 07:02 03/15/18 07:02 Labs: Abnormal Lab Results - Last 24 Hours (Table) 03/15/18 03/15/18 Range/Units 07:02 07:02 MCV 103.0 H (80.0-100.0) fL Calcium 8.0 L (8.4-10.2) mg/dL Total Protein 6.0 L (6.3-8.2) g/dL Albumin 3.1 L (3.5-5.0) g/dL Microbiology - Last 24 Hours (Table) 03/13/18 13:10 Group A Strep Throat Culture - Final Throat 03/13/18 17:11 Blood Culture - Preliminary Blood No Growth after 24 hours 03/13/18 15:18 Urine Culture - Final Urine,Voided 03/13/18 12:55 Blood Culture - Preliminary Blood No Growth after 24 hours Assessment and Plan (1) Constipation Current Visit: Yes Status: Acute Code(s): K59.00 - CONSTIPATION, UNSPECIFIED SNOMED Code(s): 08901518 (2) SIRS (systemic inflammatory response syndrome) Current Visit: Yes Status: Acute Code(s): R65.10 - SIRS OF NON-INFECTIOUS ORIGIN W/O ACUTE ORGAN DYSFUNCTION SNOMED Code(s): 876427165 (3) Fever Current Visit: No Status: Acute Code(s): R50.9 - FEVER, UNSPECIFIED SNOMED Code(s): 089399687 (4) Weakness Current Visit: No Status: Acute Code(s): R53.1 - WEAKNESS SNOMED Code(s): 89613846 Plan: Continue current regimen of antibiotic treatment. New Check CBC in the a.m. Anticipate discharge in a.m. with home health. Start physical therapy for strengthening and gait.
[2018-03-15] MEDS: NYSTATIN 100,000 UNIT/GM POWD 15 GM TOPICAL SCH (14:04)
[2018-03-15] MEDS: AZITHROMYCIN 500 MG TAB PO SCH (18:05)
[2018-03-16] MEDS: APIXABAN 5 MG TAB PO SCH (00:08)
[2018-03-16] MEDS: NYSTATIN 100,000 UNIT/GM POWD 15 GM TOPICAL SCH ×2 (00:08→12:34)
[2018-03-16] MEDS: CYCLOBENZAPRINE 10 MG TAB PO SCH (00:08)
[2018-03-16] MEDS: GABAPENTIN 300 MG CAP PO SCH ×2 (00:08→08:38)
[2018-03-16 08:17] VITALS: BP 128/84; PULSE 78; RESP 18; TEMP 98.4
--- NOTE | 2018-03-16 08:35 | P.DS ---
Providers Date of admission: 03/13/18 15:14 Attending physician: Renan Chowdhury Primary care physician: Renan Chowdhury - Discharge Diagnosis(es) (1) Constipation Current Visit: Yes Status: Acute (2) SIRS (systemic inflammatory response syndrome) Current Visit: Yes Status: Acute (3) Fever Current Visit: No Status: Acute (4) Weakness Current Visit: No Status: Acute Patient Condition at Discharge: Fair Plan - Discharge Summary Discharge Rx Participant: Yes New Discharge Prescriptions: New Cefuroxime Axetil [Ceftin] 500 mg PO BID #14 tab RX: Nystatin 100,000 Unit/gm Powd [Mycostatin Powder] 1 applic TOPICAL BID # 60 gm Continue RX: Gabapentin [Neurontin] 600 mg PO TID@0000,0800,1600 RX: Metaxalone 800 mg PO DAILY@0000 RX: Furosemide [Lasix] 20 mg PO DAILY PRN PRN Reason: Edema RX: Finasteride [Proscar] 5 mg PO DAILY@1200 RX: Bisacodyl [Dulcolax] 5 mg PO DAILY PRN PRN Reason: Constipation RX: Enalapril [Vasotec] 2.5 mg PO DAILY@1200 RX: HYDROcodone/APAP 7.5-325MG [Ross 7.5-325] 1 tab PO Q6HR PRN PRN Reason: Pain RX: Apixaban [Eliquis] 5 mg PO BID@0000,1200 Discharge Medication List RX: Gabapentin [Neurontin] 600 mg PO TID@0000,0800,1600 01/17/15 [History] RX: Metaxalone 800 mg PO DAILY@0000 01/17/15 [History] RX: Finasteride [Proscar] 5 mg PO DAILY@1200 12/14/15 [History] RX: Furosemide [Lasix] 20 mg PO DAILY PRN 12/14/15 [History] RX: Bisacodyl [Dulcolax] 5 mg PO DAILY PRN 03/09/16 [History] RX: Enalapril [Vasotec] 2.5 mg PO DAILY@1200 03/09/16 [History] RX: Apixaban [Eliquis] 5 mg PO BID@0000,1200 01/24/17 [History] RX: HYDROcodone/APAP 7.5-325MG [Ross 7.5-325] 1 tab PO Q6HR PRN 01/24/17 [ History] Cefuroxime Axetil [Ceftin] 500 mg PO BID #14 tab 03/16/18 [Rx] RX: Nystatin 100,000 Unit/gm Powd [Mycostatin Powder] 1 applic TOPICAL BID #60 gm 03/16/18 [Rx] Follow up Appointment(s)/Referral(s): Renan Chowdhury MD [Primary Care Provider] - 1-2 days [facility] Visiting Nurse, [NON-STAFF] - As Needed
[2018-03-16] MEDS: DOCUSATE 100 MG CAP PO SCH (08:37)
[2018-03-16] MEDS: PANTOPRAZOLE 40 MG TABLET PO SCH (08:38)
== END 2018-03-16 13:17 | disposition home health service (06) | DRG 872 ==
LOC: EC 11:05 → 4MS4W 15:14 → 4SSUR 15:46
PROVIDERS: ADMIT Family Medicine; ATTEND Family Medicine
DX: A41.9 Sepsis, unspecified organism (principal); B02.29 Other postherpetic nervous system involvement; E87.2 Acidosis; J44.9 Chronic obstructive pulmonary disease, unspecified; S70.212A Abrasion, left hip, initial encounter; E78.5 Hyperlipidemia, unspecified; I10 Essential (primary) hypertension; K59.00 Constipation, unspecified; L98.9 Disorder of the skin and subcutaneous tissue, unspecified; M19.90 Unspecified osteoarthritis, unspecified site; G47.33 Obstructive sleep apnea (adult) (pediatric); M47.812 Spondylosis without myelopathy or radiculopathy, cervical region; Z79.01 Long term (current) use of anticoagulants; Z79.899 Other long term (current) drug therapy; Z87.442 Personal history of urinary calculi; Z86.19 Personal history of other infectious and parasitic diseases; Z96.642 Presence of left artificial hip joint; Z86.010 Personal history of colon polyps; Z87.01 Personal history of pneumonia (recurrent); Z86.711 Personal history of pulmonary embolism; Z86.718 Personal history of other venous thrombosis and embolism; Z90.49 Acquired absence of other specified parts of digestive tract; Z88.0 Allergy status to penicillin; Z80.0 Family history of malignant neoplasm of digestive organs; Z82.49 Family history of ischemic heart disease and other diseases of the circulatory system; W18.30XA Fall on same level, unspecified, initial encounter; Y92.009 Unspecified place in unspecified non-institutional (private) residence as the place of occurrence of the external cause; Y93.01 Activity, walking, marching and hiking
CPT/HCPCS: 36415; 70450; 71046; 72170; 80048; 80053; 81003; 83605; 85025; 85027; 85610; 85730; 87040; 87081; 87086; 87430; 87502; 93005; 96361; 96374; 99285

== ENCOUNTER 2018-07-12 17:18 | Emergency (ER) | payer OTHER, MEDICARE ==
[2018-07-12 17:33] VITALS: BP 128/67; PULSE 92; RESP 18; TEMP 98.6
[2018-07-12] MEDS ORDERED: DIPH,PERTUS(ACELL)TETVAC-LF 0.5 ML VIAL IM ONE (18:04)
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
== END 2018-07-12 19:25 | disposition home or self-care (01) ==
LOC: EC 17:18
DX: S51.012A Laceration without foreign body of left elbow, initial encounter (principal); S61.411A Laceration without foreign body of right hand, initial encounter; Z23 Encounter for immunization; I10 Essential (primary) hypertension; M19.90 Unspecified osteoarthritis, unspecified site; G47.30 Sleep apnea, unspecified; G62.9 Polyneuropathy, unspecified; Z79.899 Other long term (current) drug therapy; Z79.01 Long term (current) use of anticoagulants; Z88.0 Allergy status to penicillin; Z96.642 Presence of left artificial hip joint; Z86.718 Personal history of other venous thrombosis and embolism; Z86.73 Personal history of transient ischemic attack (TIA), and cerebral infarction without residual deficits; V43.52XA Car driver injured in collision with other type car in traffic accident, initial encounter; W22.11XA Striking against or struck by driver side automobile airbag, initial encounter; Y92.410 Unspecified street and highway as the place of occurrence of the external cause
CPT/HCPCS: 90471; 90715; 99284

== ENCOUNTER → 2019-01-24 | Outpatient (CLI) | payer MEDICARE ==
--- NOTE | 2019-01-24 14:51 | CT ---
EXAMINATION TYPE: CT abdomen pelvis wo con DATE OF EXAM: 01/24/2019 COMPARISON: Prior CT 12/31/2015 HISTORY: Kidney stone, N 20.0 CT DLP: 928 mGycm Automated exposure control for dose reduction was used. TECHNIQUE: Helical acquisition of images from the lung bases through the pelvis. FINDINGS: Lack of contrast could compromise sensitivity. LUNG BASES: No significant abnormality is appreciated. AORTA: No significant abnormality is appreciated. There are dense atherosclerotic calcifications in the mesenteric vasculature, peripheral vasculature. LIVER/GB: Patient is status post cholecystectomy. Liver shows no mass. There is artifact present. The re may be underlying heterogeneous density. PANCREAS: No significant abnormality is seen. SPLEEN: No significant abnormality is seen. ADRENALS: No significant abnormality is seen. KIDNEYS: No significant abnormality is seen. REPRODUCTIVE ORGANS: Prostate may be mildly enlarged. Small right inguinal hernia containing fat lavon pected. URINARY BLADDER: Small foci of increased density dependent portion of the bladder compatible with po ssible small calculi. BOWEL: No significant abnormality is seen. Appendix is normal. FREE AIR: No Free Air is visible. ASCITES: None visible. PELVIC ADENOPATHY: None visualized. RETROPERITONEAL ADENOPATHY: No Retroperitoneal Adenopathy visible. OSSEOUS STRUCTURES: Degenerative disc disease and facet arthropathy noted the lower lumbar spine. St reak artifact due to patient's left hip arthroplasty noted. IMPRESSION: FINDINGS COMPATIBLE WITH SMALL CALCULI WITHIN THE BLADDER. NONCONTRAST EXAM. POSTOP CHANGES.
== END | disposition home or self-care (01) ==
LOC: RADCTMAIN 12:32
PROVIDERS: ATTEND Family Medicine
DX: N20.0 Calculus of kidney (principal); Z98.890 Other specified postprocedural states; Z88.0 Allergy status to penicillin; Z88.8 Allergy status to other drugs, medicaments and biological substances
CPT/HCPCS: 74176

== ENCOUNTER 2020-08-20 17:16 | Inpatient (IN) | payer MEDICARE, OTHER ==
--- NOTE | 2020-08-20 17:54 | ED ---
General Adult HPI - General Chief complaint: Neuro Symptoms/Deficit Stated complaint: UTI/confusion Time Seen by Provider: 08/20/20 17:25 Source: EMS Mode of arrival: EMS Limitations: altered mental status, physical limitation - History of Present Illness Initial comments: Patient is an 80-year-old male presents to the emergency department with reported confusion and weakness. Patient normally has chronic weakness and has physical therapy twice a week at the house. He also has home care. The home care nurse came to the house today and thought that the patient had some alteration in his mental status. Patient appeared to be more fatigued. He did have recent laboratory studies and a urine performed. Urinalysis was positive and therefore he was placed on Cipro. Family at bedside reports that the patient only had one dose of the Cipro today. He had a fall last week where he sustained abrasions to his lower extremities. He denies any joint pain. Patient did not hit his head. He is not on any blood thinners. He denies any changes in his bowel or bladder habits. No fevers or chills. No vomiting. Denies any abdominal pain. No chest pain or shortness of breath. No contact with Covid patients. No other alleviating, presenting modifying factors - Related Data Home Medications Medication Instructions Recorded Confirmed Finasteride [Proscar] 5 mg PO DAILY 12/14/15 08/20/20 Apixaban [Eliquis] 2.5 mg PO BID 01/24/17 08/20/20 Ciprofloxacin HCl [Cipro] 500 mg PO BID 08/20/20 08/20/20 HYDROcodone/APAP 5-325MG [[place] 1 tab PO Q6H PRN 08/20/20 08/20/20 5-325] Previous Rx's Medication Instructions Recorded Gabapentin [Neurontin] 300 mg PO TID #9 cap 08/26/20 Allergies Allergy/AdvReac Type Severity Reaction Status Date / Time Penicillins Allergy Unknown. Verified 08/20/20 17:25 INJECTION FORM ONLY Review of Systems ROS Statement: Those systems with pertinent positive or pertinent negative responses have been documented in the HPI. ROS Other: All systems not noted in ROS Statement are negative. 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 Past Psychological History: No Psychological Hx Reported Smoking Status: Unknown if ever smoked Past Alcohol Use History: Rare Past Drug Use History: None Reported - Past Family History Father Family Medical History: Cancer Additional Family Medical History / Comment(s): Father had colon cancer. He of aortic aneurysm at age 92/93 yrs Mother Family Medical History: Coronary Artery Disease (CAD) Additional Family Medical History / Comment(s): Mother had heart issues and at age 75/76 yrs. General Exam Limitations: altered mental status, physical limitation General appearance: alert, in no apparent distress Head exam: Present: atraumatic, normocephalic, normal inspection Eye exam: Present: normal appearance, PERRL, EOMI. Absent: scleral icterus, conjunctival injection, periorbital swelling ENT exam: Present: normal exam, mucous membranes moist Neck exam: Present: normal inspection. Absent: tenderness, meningismus, lymphadenopathy Respiratory exam: Present: normal lung sounds bilaterally. Absent: respiratory distress, wheezes, rales, rhonchi, stridor Cardiovascular Exam: Present: regular rate, normal rhythm, normal heart sounds. Absent: systolic murmur, diastolic murmur, rubs, gallop, clicks GI/Abdominal exam: Present: soft, normal bowel sounds. Absent: distended, tenderness, guarding, rebound, rigid Extremities exam: Present: full ROM, normal capillary refill, other (3/5 strength bilateral lower extremities). Absent: tenderness, pedal edema, joint swelling, calf tenderness Back exam: Present: normal inspection Neurological exam: Present: alert, oriented X3, CN II-XII intact Psychiatric exam: Present: normal affect, normal mood Skin exam: Present: warm, dry, intact, normal color. Absent: rash Course Vital Signs 08/20/20 08/20/20 08/21/20 17:22 22:34 02:13 Temperature 98.8 F Pulse Rate 84 88 79 Respiratory 18 18 Rate Blood Pressure 185/115 168/88 143/83 O2 Sat by Pulse 98 97 98 Oximetry 08/21/20 08/21/20 08/21/20 06:11 08:17 12:09 Temperature 98.4 F Pulse Rate 82 84 84 Respiratory 16 16 16 Rate Blood Pressure 144/82 129/29 154/98 O2 Sat by Pulse 98 97 97 Oximetry EKG Findings - EKG Comments: EKG Findings:: EKG demonstrates A. fib with a rate of 85. QRS 122. QTC of 490. Right bundle branch block. Left anterior fascicular block Medical Decision Making - Medical Decision Making Upon arrival patient was placed into room 4. Thorough history and physical exam is performed. IV is established. Laboratory studies were conducted and the patient went for CT of his brain. Laboratory studies are reviewed. Urinalysis demonstrates trace ketones. CT of his brain demonstrates cerebral atrophy and mild hydrocephalus. No change compared to old exam. Chest x-ray demonstrates no active cardiopulmonary disease. I did discuss results with Dr. Chowdhury who agreed to admit the patient due to weakness, dehydration and falls. Patient is currently awaiting a bed on the floor - Lab Data Result diagrams: 08/24/20 05:42 08/24/20 05:42 Lab Results 08/20/20 08/20/20 08/20/20 Range/Units 17:16 17:16 17:16 WBC 4.9 (3.8-10.6) k/uL RBC 4.94 (4.30-5.90) m/uL Hgb 16.6 (13.0-17.5) gm/dL Hct 51.3 (39.0-53.0) % MCV 103.7 H (80.0-100.0) fL MCH 33.6 (25.0-35.0) pg MCHC 32.4 (31.0-37.0) g/dL RDW 13.8 (11.5-15.5) % Plt Count 269 (150-450) k/uL MPV 8.3 Neutrophils % 62 % Lymphocytes % 28 % Monocytes % 4 % Eosinophils % 3 % Basophils % 2 % Neutrophils # 3.0 (1.3-7.7) k/uL Lymphocytes # 1.4 (1.0-4.8) k/uL Monocytes # 0.2 (0-1.0) k/uL Eosinophils # 0.1 (0-0.7) k/uL Basophils # 0.1 (0-0.2) k/uL Macrocytosis Slight PT 10.8 (9.0-12.0) sec INR 1.0 (<1.2) APTT 25.0 (22.0-30.0) sec Sodium (137-145) mmol/L Potassium (3.5-5.1) mmol/L Chloride (98-107) mmol/L Carbon Dioxide (22-30) mmol/L Anion Gap mmol/L BUN (9-20) mg/dL Creatinine (0.66-1.25) mg/dL Est GFR (CKD-EPI)AfAm (>60 ml/min/1.73 sqM) Est GFR (CKD-EPI)NonAf (>60 ml/min/1.73 sqM) Glucose (74-99) mg/dL Plasma Lactic Acid Lan 1.8 (0.7-2.0) mmol/L Calcium (8.4-10.2) mg/dL Magnesium (1.6-2.3) mg/dL Total Bilirubin (0.2-1.3) mg/dL AST (17-59) U/L ALT (4-49) U/L Alkaline Phosphatase (38-126) U/L Creatine Kinase (55-170) U/L Troponin I (0.000-0.034) ng/mL NT-Pro-B Natriuret Pep pg/mL Total Protein (6.3-8.2) g/dL Albumin (3.5-5.0) g/dL Vitamin B12 (200.0-944.0) pg/mL Folate ng/mL TSH (0.350-5.500) uIU/mL Urine Color Urine Appearance (Clear) Urine pH (5.0-8.0) Ur Specific [place] (1.001-1.035) Urine Protein (Negative) Urine Glucose (UA) (Negative) Urine Ketones (Negative) Urine Blood (Negative) Urine Nitrite (Negative) Urine Bilirubin (Negative) Urine Urobilinogen (<2.0) mg/dL Ur Leukocyte Esterase (Negative) Coronavirus (PCR) (Not Detectd) 08/20/20 08/20/20 08/20/20 Range/Units 17:16 17:16 19:32 WBC (3.8-10.6) k/uL RBC (4.30-5.90) m/uL Hgb (13.0-17.5) gm/dL Hct (39.0-53.0) % MCV (80.0-100.0) fL MCH (25.0-35.0) pg MCHC (31.0-37.0) g/dL RDW (11.5-15.5) % Plt Count (150-450) k/uL MPV Neutrophils % % Lymphocytes % % Monocytes % % Eosinophils % % Basophils % % Neutrophils # (1.3-7.7) k/uL Lymphocytes # (1.0-4.8) k/uL Monocytes # (0-1.0) k/uL Eosinophils # (0-0.7) k/uL Basophils # (0-0.2) k/uL Macrocytosis PT (9.0-12.0) sec INR (<1.2) APTT (22.0-30.0) sec Sodium 137 (137-145) mmol/L Potassium 4.0 (3.5-5.1) mmol/L Chloride 104 (98-107) mmol/L Carbon Dioxide 26 (22-30) mmol/L Anion Gap 7 mmol/L BUN 8 L (9-20) mg/dL Creatinine 0.61 L (0.66-1.25) mg/dL Est GFR (CKD-EPI)AfAm >90 (>60 ml/min/1.73 sqM) Est GFR (CKD-EPI)NonAf >90 (>60 ml/min/1.73 sqM) Glucose 95 (74-99) mg/dL Plasma Lactic Acid Lan (0.7-2.0) mmol/L Calcium 8.6 (8.4-10.2) mg/dL Magnesium 1.7 (1.6-2.3) mg/dL Total Bilirubin 1.1 (0.2-1.3) mg/dL AST 21 (17-59) U/L ALT 12 (4-49) U/L Alkaline Phosphatase 61 (38-126) U/L Creatine Kinase 42 L (55-170) U/L Troponin I <0.012 (0.000-0.034) ng/mL NT-Pro-B Natriuret Pep 575 pg/mL Total Protein 6.8 (6.3-8.2) g/dL Albumin 3.8 (3.5-5.0) g/dL Vitamin B12 (200.0-944.0) pg/mL Folate ng/mL TSH (0.350-5.500) uIU/mL Urine Color Urine Appearance (Clear) Urine pH (5.0-8.0) Ur Specific [place] (1.001-1.035) Urine Protein (Negative) Urine Glucose (UA) (Negative) Urine Ketones (Negative) Urine Blood (Negative) Urine Nitrite (Negative) Urine Bilirubin (Negative) Urine Urobilinogen (<2.0) mg/dL Ur Leukocyte Esterase (Negative) Coronavirus (PCR) (Not Detectd) 08/20/20 08/20/20 08/20/20 Range/Units 19:32 19:55 22:34 WBC (3.8-10.6) k/uL RBC (4.30-5.90) m/uL Hgb (13.0-17.5) gm/dL Hct (39.0-53.0) % MCV (80.0-100.0) fL MCH (25.0-35.0) pg MCHC (31.0-37.0) g/dL RDW (11.5-15.5) % Plt Count (150-450) k/uL MPV Neutrophils % % Lymphocytes % % Monocytes % % Eosinophils % % Basophils % % Neutrophils # (1.3-7.7) k/uL Lymphocytes # (1.0-4.8) k/uL Monocytes # (0-1.0) k/uL Eosinophils # (0-0.7) k/uL Basophils # (0-0.2) k/uL Macrocytosis PT (9.0-12.0) sec INR (<1.2) APTT (22.0-30.0) sec Sodium (137-145) mmol/L Potassium (3.5-5.1) mmol/L Chloride (98-107) mmol/L Carbon Dioxide (22-30) mmol/L Anion Gap mmol/L BUN (9-20) mg/dL Creatinine (0.66-1.25) mg/dL Est GFR (CKD-EPI)AfAm (>60 ml/min/1.73 sqM) Est GFR (CKD-EPI)NonAf (>60 ml/min/1.73 sqM) Glucose (74-99) mg/dL Plasma Lactic Acid Lan (0.7-2.0) mmol/L Calcium (8.4-10.2) mg/dL Magnesium (1.6-2.3) mg/dL Total Bilirubin (0.2-1.3) mg/dL AST (17-59) U/L ALT (4-49) U/L Alkaline Phosphatase (38-126) U/L Creatine Kinase (55-170) U/L Troponin I (0.000-0.034) ng/mL NT-Pro-B Natriuret Pep pg/mL Total Protein (6.3-8.2) g/dL Albumin (3.5-5.0) g/dL Vitamin B12 1105.0 H (200.0-944.0) pg/mL Folate 12.7 ng/mL TSH 1.720 (0.350-5.500) uIU/mL Urine Color Yellow Urine Appearance Clear (Clear) Urine pH 7.5 (5.0-8.0) Ur Specific [place] 1.014 (1.001-1.035) Urine Protein Negative (Negative) Urine Glucose (UA) Negative (Negative) Urine Ketones Trace H (Negative) Urine Blood Negative (Negative) Urine Nitrite Negative (Negative) Urine Bilirubin Negative (Negative) Urine Urobilinogen <2.0 (<2.0) mg/dL Ur Leukocyte Esterase Negative (Negative) Coronavirus (PCR) Not Detected (Not Detectd) 08/21/20 08/21/20 Range/Units 04:56 04:56 WBC 5.3 (3.8-10.6) k/uL RBC 5.13 (4.30-5.90) m/uL Hgb 17.2 (13.0-17.5) gm/dL Hct 53.7 H (39.0-53.0) % MCV 104.6 H (80.0-100.0) fL MCH 33.6 (25.0-35.0) pg MCHC 32.1 (31.0-37.0) g/dL RDW 13.8 (11.5-15.5) % Plt Count 233 (150-450) k/uL MPV 7.7 Neutrophils % 69 % Lymphocytes % 22 % Monocytes % 6 % Eosinophils % 1 % Basophils % 1 % Neutrophils # 3.6 (1.3-7.7) k/uL Lymphocytes # 1.2 (1.0-4.8) k/uL Monocytes # 0.3 (0-1.0) k/uL Eosinophils # 0.1 (0-0.7) k/uL Basophils # 0.1 (0-0.2) k/uL Macrocytosis Slight PT (9.0-12.0) sec INR (<1.2) APTT (22.0-30.0) sec Sodium 139 (137-145) mmol/L Potassium 4.4 (3.5-5.1) mmol/L Chloride 103 (98-107) mmol/L Carbon Dioxide 27 (22-30) mmol/L Anion Gap 9 mmol/L BUN 9 (9-20) mg/dL Creatinine 0.75 (0.66-1.25) mg/dL Est GFR (CKD-EPI)AfAm >90 (>60 ml/min/1.73 sqM) Est GFR (CKD-EPI)NonAf 86 (>60 ml/min/1.73 sqM) Glucose 103 H (74-99) mg/dL Plasma Lactic Acid Lan (0.7-2.0) mmol/L Calcium 8.8 (8.4-10.2) mg/dL Magnesium (1.6-2.3) mg/dL Total Bilirubin (0.2-1.3) mg/dL AST (17-59) U/L ALT (4-49) U/L Alkaline Phosphatase (38-126) U/L Creatine Kinase (55-170) U/L Troponin I (0.000-0.034) ng/mL NT-Pro-B Natriuret Pep pg/mL Total Protein (6.3-8.2) g/dL Albumin (3.5-5.0) g/dL Vitamin B12 (200.0-944.0) pg/mL Folate ng/mL TSH (0.350-5.500) uIU/mL Urine Color Urine Appearance (Clear) Urine pH (5.0-8.0) Ur Specific [place] (1.001-1.035) Urine Protein (Negative) Urine Glucose (UA) (Negative) Urine Ketones (Negative) Urine Blood (Negative) Urine Nitrite (Negative) Urine Bilirubin (Negative) Urine Urobilinogen (<2.0) mg/dL Ur Leukocyte Esterase (Negative) Coronavirus (PCR) (Not Detectd) Disposition Clinical Impression: Afib, Dehydration Disposition: ADMITTED IP TO THIS [facility] Condition: Stable Is patient prescribed a controlled substance at d/c from ED?: No Decision to Admit Reason: Admit from EC Decision Date: 08/21/20 Decision Time: 00:01
[2020-08-20] MEDS ORDERED: SODIUM CHLORIDE 0.9% 500 ML 500 ML IV STA (18:08)
--- NOTE | 2020-08-20 18:50 | CT ---
EXAMINATION TYPE: CT brain wo con DATE OF EXAM: 08/20/2020 COMPARISON: March 13, 2018 HISTORY: weakness, ams CT DLP: 1188.4 mGycm Automated exposure control for dose reduction was used. Exam performed without contrast. There is cerebral cortical atrophy. There is no mass effect nor midline shift. There is no sign of in tracranial hemorrhage. The calvarium is intact. There is some enlargement of the ventricles. IMPRESSION: Cerebral atrophy and mild hydrocephalus. There is cavum septum pellucidum which is normal variant. No change compared to old exam.
--- NOTE | 2020-08-20 18:54 | XR ---
EXAMINATION TYPE: XR chest 2V DATE OF EXAM: 08/20/2020 COMPARISON: March 13, 2018 HISTORY: Pain TECHNIQUE: 2 views FINDINGS: There is no heart failure nor confluent pneumonic infiltrate. Costophrenic angles are clear . Thoracic aorta is atheromatous. There is posterior fusion surgery in the upper thoracic spine. Ther e are chest leads. IMPRESSION: No active cardiopulmonary disease. No change.
[2020-08-20 18:55] LABS: Basophils # (A) 0.1 k/uL (0-0.2); Basophils % (A) 2 %; Eosinophils # (A) 0.1 k/uL (0-0.7); Eosinophils % (A) 3 %; HCT 51.3 % (39.0-53.0); HGB 16.6 gm/dL (13.0-17.5); Lymphocytes # (A) 1.4 k/uL (1.0-4.8); Lymphocytes % (A) 28 %; MCH 33.6 pg (25.0-35.0); MCHC 32.4 g/dL (31.0-37.0); MCV 103.7 fL (80.0-100.0); Macrocytosis Slight; Mean Platelet Volume 8.3; Monocytes # (A) 0.2 k/uL (0-1.0); Monocytes % (A) 4 %; Neutrophils % (A) 62 %; Platelet Count 269 k/uL (150-450); RBC 4.94 m/uL (4.30-5.90); RDW 13.8 % (11.5-15.5); WBC 4.9 k/uL (3.8-10.6)
[2020-08-20 19:09] LABS: Prothrombin Time 10.8 sec (9.0-12.0)
[2020-08-20 20:14] LABS: Appearance,Urine Clear (Clear); Bilirubin,Urine Negative (Negative); Blood,Urine Negative (Negative); Color,Urine Yellow; Glucose,Urine (UA) Negative (Negative); Ketones,Urine Trace (Negative); Leukocyte Esterase,Urine Negative (Negative); Nitrite,Urine Negative (Negative); PH, Urine 7.5 (5.0-8.0); Protein,Urine Negative (Negative); Specific Gravity,Urine 1.014 (1.001-1.035); Urobilinogen,Urine <2.0 mg/dL (<2.0)
[2020-08-20 20:25] LABS: ALT 12 U/L (4-49); AST 21 U/L (17-59); African American GFR (CKD) >90 (>60 ml/min/1.73 sqM); Albumin 3.8 g/dL (3.5-5.0); Alkaline Phosphatase 61 U/L (38-126); Anion Gap 7 mmol/L; Blood Urea Nitrogen 8 mg/dL (9-20); Calcium 8.6 mg/dL (8.4-10.2); Carbon Dioxide 26 mmol/L (22-30); Chloride 104 mmol/L (98-107); Creatine Kinase 42 U/L (55-170); Glucose 95 mg/dL (74-99); Magnesium 1.7 mg/dL (1.6-2.3); Non-African American GFR(CKD) >90 (>60 ml/min/1.73 sqM); Sodium 137 mmol/L (137-145); Total Bilirubin 1.1 mg/dL (0.2-1.3); Total Protein 6.8 g/dL (6.3-8.2)
[2020-08-20] MEDS ORDERED: NALOXONE 0.4 MG/ML 1 ML VIAL IV PRN (20:37)
[2020-08-20] MEDS: CIPROFLOXACIN HCL 500 MG TAB PO SCH (22:37)
[2020-08-20] MEDS: GABAPENTIN 300 MG CAP PO SCH (22:40)
[2020-08-21 06:25] LABS: Basophils # (A) 0.1 k/uL (0-0.2); Basophils % (A) 1 %; Eosinophils # (A) 0.1 k/uL (0-0.7); Eosinophils % (A) 1 %; HCT 53.7 % (39.0-53.0); HGB 17.2 gm/dL (13.0-17.5); Lymphocytes # (A) 1.2 k/uL (1.0-4.8); Lymphocytes % (A) 22 %; MCH 33.6 pg (25.0-35.0); MCHC 32.1 g/dL (31.0-37.0); MCV 104.6 fL (80.0-100.0); Macrocytosis Slight; Mean Platelet Volume 7.7; Monocytes # (A) 0.3 k/uL (0-1.0); Monocytes % (A) 6 %; Neutrophils # (A) 3.6 k/uL (1.3-7.7); Neutrophils % (A) 69 %; Platelet Count 233 k/uL (150-450); RBC 5.13 m/uL (4.30-5.90); RDW 13.8 % (11.5-15.5); WBC 5.3 k/uL (3.8-10.6)
[2020-08-21 06:26] LABS: African American GFR (CKD) >90 (>60 ml/min/1.73 sqM); Anion Gap 9 mmol/L; Blood Urea Nitrogen 9 mg/dL (9-20); Calcium 8.8 mg/dL (8.4-10.2); Carbon Dioxide 27 mmol/L (22-30); Chloride 103 mmol/L (98-107); Glucose 103 mg/dL (74-99); Non-African American GFR(CKD) 86 (>60 ml/min/1.73 sqM); Potassium 4.4 mmol/L (3.5-5.1); Sodium 139 mmol/L (137-145)
[2020-08-21] MEDS: APIXABAN 2.5 MG TABLET PO SCH ×3 (08:02→20:02)
[2020-08-21] MEDS: GABAPENTIN 300 MG CAP PO SCH ×4 (08:02→21:36)
--- NOTE | 2020-08-21 08:24 | P.HPIM ---
History of Present Illness Chief Complaint: Weakness This is a history and physical on a 80-year-old white male with known history of significant weakness. Home health nurse called my office several days ago stating U urinary tract infection. He said significant weakness and history of fall last week after getting out of his truck. 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 And history of obstructive sleep apnea. History of DVT hypertension hyperlipidemia history of PE in the past also. Surgical history includes cholecystectomy and tonsillectomy. Neck surgery and cervical spine fixation with hip arthroplasty and has a history of lithotripsy in the past. The patient has now been admitted for significant weakness. Urinalysis at this hospital physician did not show significant infection as compared to the outpatient test there was some ketotic at elements of the UA and he is now admitted for hydration. Appetite seems to be nominal. Review of Systems Constitutional: Reports fatigue, Denies chills, Denies fever Eyes: denies blurred vision, denies pain Ears, nose, mouth and throat: Denies headache, Denies sore throat Cardiovascular: Denies chest pain, Denies shortness of breath Respiratory: Denies cough Gastrointestinal: Denies abdominal pain, Denies diarrhea, Denies nausea, Denies vomiting Genitourinary: Reports dysuria, Denies flank pain Musculoskeletal: Denies myalgias Integumentary: Denies pruritus, Denies rash Neurological: Denies numbness, Denies weakness Psychiatric: Denies anxiety, Denies depression Endocrine: Denies fatigue, Denies weight change 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, CLEMENTINE but no longer wears CPAP due to significant weight loss and the use of CPAP mask became painful due to R head neuropathy,Pneumonia in 2010, COPD-mild, 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 Past Psychological History: No Psychological Hx Reported Smoking Status: Unknown if ever smoked Past Alcohol Use History: Rare Past Drug Use History: None Reported - Past Family History Father Family Medical History: Cancer Additional Family Medical History / Comment(s): Father had colon cancer. He of aortic aneurysm at age 92/93 yrs Mother Family Medical History: Coronary Artery Disease (CAD) Additional Family Medical History / Comment(s): Mother had heart issues and at age 75/76 yrs. Medications and Allergies Home Medications Medication Instructions Recorded Confirmed Type Gabapentin [Neurontin] 300 mg PO TID 01/17/15 08/20/20 History Finasteride [Proscar] 5 mg PO DAILY 12/14/15 08/20/20 History Apixaban [Eliquis] 2.5 mg PO BID 01/24/17 08/20/20 History Ciprofloxacin HCl [Cipro] 500 mg PO BID 08/20/20 08/20/20 History HYDROcodone/APAP 5-325MG [[place] 1 tab PO Q6H PRN 08/20/20 08/20/20 History 5-325] Allergies Allergy/AdvReac Type Severity Reaction Status Date / Time Penicillins Allergy Unknown. Verified 08/20/20 17:25 INJECTION FORM ONLY Physical Exam Vitals: Vital Signs Temp Pulse Resp BP Pulse Ox 08/21/20 08:17 84 16 129/29 97 08/21/20 06:11 82 16 144/82 98 08/21/20 02:13 79 143/83 98 08/20/20 22:34 88 18 168/88 97 08/20/20 17:22 98.8 F 84 18 185/115 98 Intake and Output 08/20/20 08/21/20 08/21/20 22:59 06:59 14:59 Other: Weight 82.2 kg - Constitutional General appearance: cooperative, no acute distress - EENT Eyes: EOMI - Neck Neck: no lymphadenopathy - Respiratory Respiratory: bilateral: CTA - Cardiovascular Rhythm: regular Heart sounds: normal: S1, S2 Abnormal Heart Sounds: no S3 Gallop - Gastrointestinal General gastrointestinal: soft, no tenderness - Integumentary Some old lacerations from fall on the left upper extremity. - Musculoskeletal Musculoskeletal: generalized weakness - Psychiatric Psychiatric: A&O x's 3, appropriate affect Results CBC & Chem 7: 08/21/20 04:56 08/21/20 04:56 Labs: Abnormal Lab Results - Last 24 Hours (Table) 08/20/20 08/20/20 08/20/20 Range/Units 17:16 19:32 19:55 Hct (39.0-53.0) % MCV 103.7 H (80.0-100.0) fL BUN 8 L (9-20) mg/dL Creatinine 0.61 L (0.66-1.25) mg/dL Glucose (74-99) mg/dL Creatine Kinase 42 L (55-170) U/L Urine Ketones Trace H (Negative) 08/21/20 08/21/20 Range/Units 04:56 04:56 Hct 53.7 H (39.0-53.0) % MCV 104.6 H (80.0-100.0) fL BUN (9-20) mg/dL Creatinine (0.66-1.25) mg/dL Glucose 103 H (74-99) mg/dL Creatine Kinase (55-170) U/L Urine Ketones (Negative) Assessment and Plan (1) Fall Current Visit: No Status: Acute Code(s): W19.XXXA - UNSPECIFIED FALL, INITIAL ENCOUNTER SNOMED Code(s): 1788561 (2) Weakness Current Visit: No Status: Acute Code(s): R53.1 - WEAKNESS SNOMED Code(s): 92308396 Plan: We'll go ahead and continue observation and increase ambulation. I suspect he could be relatively increased fall risk. If he is not stable on ambulation, consider complete neurologic evaluation today. Otherwise, we will anticipate discharge in the next 12-24 hours. Reconcile home medications Time with Patient: Greater than 30
[2020-08-21] MEDS: CIPROFLOXACIN HCL 500 MG TAB PO SCH ×2 (10:30→21:36)
[2020-08-21] MEDS: FINASTERIDE 5 MG TAB PO SCH (10:30)
[2020-08-21] MEDS: HYDROcodone/APAP 5-325MG 1 EACH TAB PO PRN (10:37)
[2020-08-21] MEDS: SODIUM CHLORIDE 0.9% 1,000 ML IV SCH ×5 (11:26→21:36)
[2020-08-22] MEDS: HYDROcodone/APAP 5-325MG 1 EACH TAB PO PRN ×2 (03:13→10:57)
[2020-08-22] MEDS: GABAPENTIN 300 MG CAP PO SCH ×3 (07:54→21:30)
[2020-08-22] MEDS: FINASTERIDE 5 MG TAB PO SCH (07:54)
[2020-08-22] MEDS: CIPROFLOXACIN HCL 500 MG TAB PO SCH ×2 (07:54→21:30)
[2020-08-22] MEDS: APIXABAN 2.5 MG TABLET PO SCH ×2 (07:54→21:30)
[2020-08-22] MEDS: SODIUM CHLORIDE 0.9% 1,000 ML IV SCH (11:37)
[2020-08-23] MEDS: HYDROcodone/APAP 5-325MG 1 EACH TAB PO PRN ×4 (00:08→20:39)
[2020-08-23] MEDS: SODIUM CHLORIDE 0.9% 1,000 ML IV SCH ×2 (04:55→15:37)
--- NOTE | 2020-08-23 08:39 | P.PN ---
Subjective Progress Note Date: 08/23/20 Principal diagnosis: Continued weakness. This is a continue present 80-year-old white male essentially admitted for multiple falls and generalized weakness. The patient has poor transfer strength. No significant fever or chills stated. Appetite seems nominal. He is agreeable to be transferred to rehab if his , who struggles cognitively at home can be transferred to the rehab facility with him. We will ask neurology to see the patient for the continued weakness and dizziness. Objective - Vital Signs Vital signs: Vital Signs Temp 98.0 F 08/23/20 02:00 Pulse 72 08/23/20 02:00 Resp 17 08/23/20 02:00 BP 147/78 08/23/20 02:00 Pulse Ox 98 08/23/20 02:00 Intake & Output 08/22/20 08/23/20 08/23/20 18:59 06:59 18:59 Intake Total 450 Output Total 200 150 Balance 250 -150 Intake: IV 450 Sodium Chloride 0.9% 1, 450 000 ml @ 75 mls/hr IV . [id number] NHAN Rx#:[id number] Output: Urine 200 150 Other: Voiding Method Urinal Urinal # Voids 2 - Constitutional General appearance: Present: average body habitus - Neck Neck: Absent: lymphadenopathy - Respiratory Respiratory: bilateral: CTA - Cardiovascular Rhythm: regular Heart sounds: normal: S1, S2 Abnormal Heart Sounds: Absent: S3 Gallop - Gastrointestinal General gastrointestinal: Present: soft. Absent: tenderness - Integumentary Integumentary: Absent: cellulitis - Labs CBC & Chem 7: 08/21/20 04:56 08/21/20 04:56 Assessment and Plan (1) Fall Current Visit: No Status: Acute Code(s): W19.XXXA - UNSPECIFIED FALL, INITIAL ENCOUNTER SNOMED Code(s): 6011240 (2) Weakness Current Visit: No Status: Acute Code(s): R53.1 - WEAKNESS SNOMED Code(s): 00324123 Plan: We'll go ahead and continue observation and increase ambulation. I suspect he could be relatively increased fall risk. If he is not stable on ambulation, consider complete neurologic evaluation today. Past neurology see the patient. Check CBC and CMP in a.m.
[2020-08-23] MEDS: CIPROFLOXACIN HCL 500 MG TAB PO SCH ×2 (09:11→20:39)
[2020-08-23] MEDS: FINASTERIDE 5 MG TAB PO SCH (09:11)
[2020-08-23] MEDS: APIXABAN 2.5 MG TABLET PO SCH ×2 (09:11→20:39)
--- NOTE | 2020-08-23 10:54 | P.CNNES ---
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 Neurology is consulted for gait weakness and dizziness. Patient's son (Scott) is at bedside and he helps with some of the history. Per the patient he's been having generalized weakness for last 2 weeks. He denies of any focal weakness, any new focal numbness, visual disturbance, denies of any dizziness, ringing in the ears or hearing lo ss. He denies of any difficulty getting his words out. He said that for the last 1 month he's been having the urinary incontinence where he feels its leaking. His son feels his gait has been off recently in the last couple weeks and which he is more shuffling upon walk-in. Patient usually walks with the walker. It seems that the patient fell about 2 weeks ago but did not lose any consciousness. Patient stated that for the last 2 weeks he feels like his legs has been unsteady but denies of any new lower back pain. Patient has chronic history of neck pain and chronic lower back pain but denies any worsening of his pain. He said that his neck pain and chronic back pain and has been there for almost 10 years. Per the patient's son the patient does not have any confusion. Patient home medication includes Eliquis 2.5 mg 1 tablet twice a day, gabapentin 3 mg 1 tablet 3 times a day, [place] 1 tablet every 6 hours when necessary, finasteride. Some of the workup in the hospital consisted of: Initial vital signs: Blood pressure of 185/115, heart rate of 84, temperature of 98.8 Fahrenheit oral, rest. 18 and pulse ox of 98% room air. CT of the head on 08/20/2020 is reported as cerebral atrophy and mild hydrocephalus. There is at cavum septum pellucidum which is normal variant. No change compared to old exam. I personally reviewed the last image in 2018 in our system and I feel it's about the same. White blood cell has been normal (4.9K). MCV is 103.4 and a repeat is 104.6 which are elevated. The basic chemistry panel is reviewed and nothing seems remarkable. Review of Systems Review of system: The 12 point system was reviewed and apparent positive and negative per HPI. 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, edema/weakness in the bilateral ankles/feet, benign colon polyps, nephrolithiasis History of Any Multi-Drug Resistant Organisms: None Reported Past Surgical History: Cholecystectomy, Hernia Repair, Joint Replacement, Tonsillectomy Additional Past Surgical History / Comment(s): Cervical surgery with metal bhavesh insertion and cervical spine fixation, L inguinal hernia repair, L total hip arthroplasty, colonoscopies with polypectomies-benign, lithotripsy Past Anesthesia/Blood Transfusion Reactions: No Reported Reaction Additional Past Anesthesia/Blood Transfusion Reaction / Comment(s): Pt has never recieved blood. Smoking Status: Never smoker - Past Family History Father Family Medical History: Cancer, Vascular Disorder Additional Family Medical History / Comment(s): Father had colon cancer. He of aortic aneurysm at age 92/93 yrs Mother Family Medical History: Coronary Artery Disease (CAD) Additional Family Medical History / Comment(s): Mother had heart issues and at age 75/76 yrs. Medications and Allergies Home Medications Medication Instructions Recorded Confirmed Type Gabapentin [Neurontin] 300 mg PO TID 01/17/15 08/20/20 History Finasteride [Proscar] 5 mg PO DAILY 12/14/15 08/20/20 History Apixaban [Eliquis] 2.5 mg PO BID 01/24/17 08/20/20 History Ciprofloxacin HCl [Cipro] 500 mg PO BID 08/20/20 08/20/20 History HYDROcodone/APAP 5-325MG [[place] 1 tab PO Q6H PRN 08/20/20 08/20/20 History 5-325] Allergies Allergy/AdvReac Type Severity Reaction Status Date / Time Penicillins Allergy Unknown. Verified 08/20/20 17:25 INJECTION FORM ONLY Physical Examination - Vital Signs Vital Signs: Vital Signs Temp Pulse Resp BP Pulse Ox 08/23/20 07:00 98.2 F 73 16 150/84 97 08/23/20 02:00 98.0 F 72 17 147/78 98 08/22/20 20:00 99.2 F 80 17 162/86 97 08/22/20 15:00 99.1 F 57 L 16 123/79 99 08/22/20 13:58 70 14 Intake and Output 08/22/20 08/23/20 08/23/20 22:59 06:59 14:59 Output Total 150 Balance -150 Output: Urine 150 Other: Voiding Method Urinal # Voids 2 GENERAL: The patient is lying in bed and is not in acute distress. CHEST: The heart rate is regular rate rhythm. No murmurs to auscultation. No carotid bruit bilaterally. LUNG: Clear to auscultation bilaterally no wheezing noted throughout. Not labored breathing. ABDOMEN/GI: Bowel sounds present in all 4 quadrants. No tenderness to palpation throughout. NEUROLOGICAL: Higher mental function: The patient is awake, alert, oriented to self, place and time. Patient is following commands. No aphasia and no neglect. Cranial nerves: The pupils are round, equal and reactive to light and accommodation. Visual melo are full to confrontation throughout. Extraocular movement is intact no nystagmus is noted. Facial sensation is normal to touch throughout. The facial strength is normal throughout. Hearing is normal bilaterally to hand rub. Tongue is midline and moved [id number] without any difficulty. No dysarthria is noted. Shoulder shrug is normal bilaterally. Motor: Gait was attempted but had hard time getting the patient out of bed. The strength is Knee extension/flexion are 4+ bilaterally. Otherwise 5 over 5 throughout. Normal tone and bulk. Cerebellum: Normal finger to nose bilaterally. Sensation: Sensation is normal to touch throughout. Reflexes (right/left): 2+ throughout except ankle are 1+ bilaterally. Plantars are downgoing bilaterally. Results Urinalysis is negative for urinary tract infection. Ortiz virus PCR was not detected - Laboratory Findings CBC and BMP: 08/21/20 04:56 08/21/20 04:56 Abnormal Lab Findings: Abnormal Labs 08/20/20 08/20/20 08/20/20 17:16 19:32 19:55 Hct MCV 103.7 H BUN 8 L Creatinine 0.61 L Glucose Creatine Kinase 42 L Urine Ketones Trace H 08/21/20 08/21/20 04:56 04:56 Hct 53.7 H MCV 104.6 H BUN Creatinine Glucose 103 H Creatine Kinase Urine Ketones Assessment and Plan Assessment: * Bilateral lower extremity unsteadiness with urinary incontinence and episode of fall for the last 2-[address] head is mild hydrocephalus: Possibly due to compononet of normal pressure hydrocephalus * Complaint of generalized weakness but mostly lower extremity unsteadiness. * History of shingles with residual right upper extremity numbness * Hypertension * Hyperlipidemia * History of Pulmonary embolism Plan: * CT of the head on 08/20/2020 is reported as cerebral atrophy and mild hydr ocephalus. There is at cavum septum pellucidum which is normal variant. No change compared to old exam. I personally reviewed the last image in 2018 in our system and I feel it's about the same. * MCV is 103.4 and a repeat is 104.6 which are elevated. * Regarding the the suspicion of normal pressure hydrocephalus: Recommend work- up as outpatient and patient to follow-up with his neurologist (Dr. Bobby) and to follow-up with a neurosurgeon. Recommend large volume CSF and to assess his gait prior and after procedure. If there is improvement then recommend HOME HEALTH SPECIALIST shunt. Per the patient's and his son they'll pursue rehab first and if no improvement they'll consider this. * Regarding the patient macrocytosis I ordered vitamin B12, folate. I also ordered TSH level which can give generalized weakness. * Patient does not want any further workup regarding images of lower back and again he was to pursue rehab therapy and there is no improvement then the he'll consider possible imaging of his lower back as outpatient * Physical therapy night patient therapy are on board * We'll defer the rest of the medical management to the primary team. The plan is discussed with the patient as well as his son (Scott). Thank you for the consultation. Pelon Keita M.D. Neuro-hospitalist
[2020-08-23] MEDS: GABAPENTIN 300 MG CAP PO SCH ×2 (15:33→21:38)
[2020-08-23 17:23] LABS: Folate, Serum 12.7 ng/mL
[2020-08-24] MEDS: SODIUM CHLORIDE 0.9% 1,000 ML IV SCH ×2 (05:56→19:23)
[2020-08-24] MEDS: CIPROFLOXACIN HCL 500 MG TAB PO SCH ×2 (08:11→20:21)
[2020-08-24] MEDS: GABAPENTIN 300 MG CAP PO SCH ×3 (08:12→20:21)
[2020-08-24] MEDS: APIXABAN 2.5 MG TABLET PO SCH ×2 (08:12→20:21)
[2020-08-24] MEDS: HYDROcodone/APAP 5-325MG 1 EACH TAB PO PRN ×3 (08:12→21:04)
[2020-08-24] MEDS: FINASTERIDE 5 MG TAB PO SCH (08:12)
[2020-08-24 08:59] LABS: HCT 43.9 % (39.6-50.0); HGB 14.1 g/dL (13.0-17.0); MCHC 32.1 g/dL (32.0-37.0); MCV 105.8 fL (80.0-97.0); Mean Platelet Volume 10.3 fL (9.5-12.2); Platelet Count 243 X 10*3/uL (140-440); RBC 4.15 X 10*6/uL (4.40-5.60); RDW 13.9 % (11.5-14.5); WBC 4.44 X 10*3/uL (4.50-10.00)
[2020-08-24 10:03] LABS: African American GFR (CKD) 102.6 (60.0-200.0); Albumin 3.6 g/dL (3.80-4.90); Albumin/Globulin Ratio 1.64 (1.60-3.17); Anion Gap 4.6 mmol/L (4.00-12.00); Calcium 8.1 mg/dL (8.7-10.3); Carbon Dioxide 27.4 mmol/L (21.6-31.8); Globulin 2.2 g/dL (1.6-3.3); Non-African American GFR(CKD) 88.5 (60.0-200.0); Potassium 4.8 mmol/L (3.5-5.5); Total Bilirubin 0.8 mg/dL (0.3-1.2); Total Protein 5.8 g/dL (6.2-8.2)
--- NOTE | 2020-08-24 13:54 | P.PN ---
Subjective Progress Note Date: 08/24/20 Patient was seen at bedside and he stated that he's doing well. Denies of any focal weakness, numbness, visual disturbance, dizziness, nausea or vomiting. Objective - Vital Signs Vital signs: Vital Signs Temp 97.8 F 08/24/20 07:15 Pulse 71 08/24/20 07:15 Resp 16 08/24/20 07:15 BP 159/87 08/24/20 07:15 Pulse Ox 97 08/24/20 07:15 Intake & Output 08/23/20 08/24/20 08/24/20 18:59 06:59 18:59 Intake Total 900 Output Total 500 352 Balance 400 -352 Intake: IV 600 Sodium Chloride 0.9% 1, 600 000 ml @ 75 mls/hr IV . [id number] NHAN Rx#:[id number] Oral 300 Output: Urine 500 352 Other: Voiding Method Urinal Urinal # Voids 2 300 - Exam GENERAL: The patient is lying in bed and is not in acute distress. NEUROLOGICAL: Higher mental function: The patient is awake, alert, oriented to self, place and time. Patient is following commands. No aphasia and no neglect. Cranial nerves: The pupils are round, equal and reactive to light and accommodation. Visual melo are full to confrontation throughout. Extraocular movement is intact no nystagmus is noted. Facial sensation is normal to touch throughout. The facial strength is normal throughout. Hearing is normal bilaterally to hand rub. Tongue is midline and moved [id number] without any difficulty. No dysarthria is noted. Shoulder shrug is normal bilaterally. Motor: Gait is deferred. The strength is Knee extension/flexion are 4+ bila terally. Otherwise 5 over 5 throughout. Normal tone and bulk. Cerebellum: Normal finger to nose bilaterally. Sensation: Sensation is normal to touch throughout. Reflexes (right/left): 2+ throughout except ankle are 1+ bilaterally. Plantars are downgoing bilaterally. - Labs CBC & Chem 7: 08/24/20 05:42 08/24/20 05:42 Labs: Abnormal Lab Results - Last 24 Hours (Table) 08/20/20 08/24/20 08/24/20 Range/Units 19:32 05:42 05:42 WBC 4.44 L (4.50-10.00) X 10*3/uL RBC 4.15 L (4.40-5.60) X 10*6/uL MCV 105.8 H (80.0-97.0) fL MCH 34.0 H (27.0-32.0) pg Calcium 8.1 L (8.7-10.3) mg/dL AST 12 L (14-35) U/L Total Protein 5.8 L (6.2-8.2) g/dL Albumin 3.60 L (3.80-4.90) g/dL Vitamin B12 1105.0 H (200.0-944.0) pg/mL Assessment and Plan Assessment: * Bilateral lower extremity unsteadiness with urinary incontinence and episode of fall for the last 2-[address] head is mild hydrocephalus: Possibly du e to compononet of normal pressure hydrocephalus ( I felt CT head is unchanged from 2018). * Complaint of generalized weakness but mostly lower extremity unsteadiness. * History of shingles with residual right upper extremity numbness * Hypertension * Hyperlipidemia * History of Pulmonary embolism Plan: * CT of the head on 08/20/2020 is reported as cerebral atrophy and mild hydrocephalus. There is at cavum septum pellucidum which is normal variant. No change compared to old exam. I personally reviewed the last image in 2018 in our system and I feel it's about the same. * MCV is 103.4 and a repeat is 104.6 which are elevated. * Vitamin B12 is at thousand 1105 which is elevated and is considered normal. * Serum Folate is 12.7 which is normal. * TSH is 1.720 which is normal. * Regarding the the suspicion of normal pressure hydrocephalus: Recommend work- up as outpatient and patient to follow-up with his neurologist (Dr. Bobby) and to follow-up with a neurosurgeon. Recommend large volume CSF and to assess his gait prior and after procedure. If there is improvement then recommend OPERATING SYSTEM DESIGNER shunt. Per the patient's and his son they'll pursue rehab first and if no improvement they'll consider this. * Patient does not want any further workup regarding images of lower back and again he was to pursue rehab therapy and there is no improvement then the he'll consider possible imaging of his lower back as outpatient * Physical therapy night patient therapy are on board * We'll defer the rest of the medical management to the primary team. There is no further neurological work-up needed at this time. Neurology will sign off. Please reconsult if needed. The plan is discussed with the patient and his nurse. Pelon Keita M.D. Neuro-hospitalist Time with Patient: Less than 30
--- NOTE | 2020-08-24 21:02 | PN ---
PROGRESS NOTE I am covering for Dr. Chowdhury. DATE OF SERVICE: 08/24/2020 This 80-year-old gentleman who was admitted with multiple falls and generalized weakness. The patient has apparently had poor appetite. The MCV was elevated. No chest pain. No palpitations. No fever. CT of the brain showed cerebral atrophy and mild hydrocephalus. Neurology is following the patient closely. PHYSICAL EXAMINATION: Alert and oriented times three. Pulse 78, blood pressure 148/85, respirations 16, temperature 98.2, pulse ox 97% on room air. HEENT: No jugular venous distention. CARDIOVASCULAR SYSTEM: S1, S2 muffled. ABDOMEN: Soft. NERVOUS SYSTEM: Diffusely weak. LABS: WBC 4.2, hemoglobin 14.1. The labs are noted. Covid 19 negative. ASSESSMENT: 1. Falls and gait dysfunction, possible acute transient ischemic attack. 2. Rule out normal-pressure hydrocephalus. 3. Generalized weakness. 4. History of shingles. 5. Hypertension. 6. Hyperlipidemia. 7. History of pulmonary embolism. 8. Increased MCV. 9. History of deep vein thrombosis. 10.History of sleep apnea. 11.History of cholecystectomy. 12.NO CODE, NO CPR, NO VENT. RECOMMENDATIONS AND DISCUSSION: In this 80-year-old gentleman who presented with multiple complex medical issues, continue current medications, symptomatic treatment. I recommend repeat labs. Otherwise closely follow with Neurology and possible ECF rehab on Wednesday. LATASHA / CAROLANNN: [id number] /
[2020-08-25] MEDS: FINASTERIDE 5 MG TAB PO SCH (07:40)
[2020-08-25] MEDS: PANTOPRAZOLE 40 MG TABLET PO SCH (07:40)
[2020-08-25] MEDS: APIXABAN 2.5 MG TABLET PO SCH ×2 (07:40→20:37)
[2020-08-25] MEDS: HYDROcodone/APAP 5-325MG 1 EACH TAB PO PRN ×2 (07:40→20:37)
[2020-08-25] MEDS: GABAPENTIN 300 MG CAP PO SCH ×3 (07:41→20:37)
[2020-08-25] MEDS: CIPROFLOXACIN HCL 500 MG TAB PO SCH ×2 (07:46→20:37)
[2020-08-25] MEDS: MULTIVITAMINS, THERA 1 EACH TAB PO SCH (12:42)
--- NOTE | 2020-08-25 16:34 | PN ---
PROGRESS NOTE DATE OF SERVICE: 08/25/2020 I am covering for Dr. Chowdhury. This 80-year-old gentleman who was admitted with falls and gait dysfunction as well as possible acute TIA, ECF rehab is being considered. No chest pain. No palpitations. No fever. PHYSICAL EXAMINATION: Alert and oriented x2. Pulse 73, blood pressure 167/89, respirations 16, temperature 97.7, pulse ox 97% on room air. HEENT: Conjunctivae normal. Oral mucosa moist. NECK: No jugular venous distention. No lymph node enlargement. CARDIOVASCULAR: S1, S2, muffled. No S3, no S4, RESPIRATORY: Diminished breath sounds at the bases. No rhonchi, no crackles. ABDOMEN: Soft, nontender. NERVOUS SYSTEM: Diffusely weak. LABS: WBC 4.2, hemoglobin 14.1. Other labs are noted. COVID-19 is negative. ASSESSMENT: 1. Falls and gait dysfunction, possible acute transient ischemic attack. 2. Rule out normal-pressure hydrocephalus. 3. Generalized weakness. 4. History of shingles. 5. Hypertension. 6. Hyperlipidemia. 7. History of pulmonary embolism. 8. Increased MCV. 9. History of deep vein thrombosis. 10.History of sleep apnea. 11.History of cholecystectomy. 12.NO CODE, NO CPR, NO VENT. RECOMMENDATIONS AND DISCUSSION: Continue current management and continue symptomatic treatment. Follow closely with Neurology. PT/OT evaluation and possible ECF rehab. Guarded prognosis. Further recommendations to follow. Dr. Chowdhury will follow tomorrow. MMODL / IJN: [id number] /
[2020-08-25] MEDS: SODIUM CHLORIDE 0.9% 1,000 ML IV SCH ×2 (19:05→20:38)
[2020-08-26 07:48] VITALS: BP 147/93; PULSE 64; RESP 16; TEMP 97.6
[2020-08-26] MEDS: FINASTERIDE 5 MG TAB PO SCH (07:56)
[2020-08-26] MEDS: SODIUM CHLORIDE 0.9% 1,000 ML IV SCH (07:56)
[2020-08-26] MEDS: MULTIVITAMINS, THERA 1 EACH TAB PO SCH (07:56)
[2020-08-26] MEDS: GABAPENTIN 300 MG CAP PO SCH (07:56)
[2020-08-26] MEDS: PANTOPRAZOLE 40 MG TABLET PO SCH (07:56)
[2020-08-26] MEDS: CIPROFLOXACIN HCL 500 MG TAB PO SCH (07:56)
[2020-08-26] MEDS: APIXABAN 2.5 MG TABLET PO SCH (07:56)
[2020-08-26] MEDS: HYDROcodone/APAP 5-325MG 1 EACH TAB PO PRN (07:59)
--- NOTE | 2020-08-26 10:33 | P.DS ---
Providers Date of admission: 08/23/20 10:09 Attending physician: Renan Chowdhury Consults: 08/23/20 08:36 Consult Physician Routine Consulting Provider: Janet Lindsey Consult Reason/Comments: Gait weakness, dizziness Do you want consulting provider notified?: Yes Primary care physician: Renan Chowdhury - Discharge Diagnosis(es) (1) Fall Current Visit: No Status: Acute (2) Weakness Current Visit: No Status: Acute Hospital Course: Discharge summary an 80-year-old white male who is essentially admitted for significant mental status encephalopathy and mobility changes. The patient was admitted but needed significant help transferring. 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 The patient is now stable from discharge and has a stipulation of having his be admitted to the same ECF temporarily. This has been done and the patient will be discharged in guarded condition Assessment: This is discharge on 80-year-old white male who had multiple falls and immobility. He has a probable diagnosis of normal pressure hydrocephalus but because of his need to have multiple people to transfer him, he is sent to rehab for appropriate treatment. He had a significant restriction because of his 's infirmity, to transfer him to ECF with her. This has been arranged and the patient is discharged in guarded condition. Patient Condition at Discharge: Stable Plan - Discharge Summary Discharge Rx Participant: No New Discharge Prescriptions: Continue Gabapentin [Neurontin] 300 mg PO TID Finasteride [Proscar] 5 mg PO DAILY Apixaban [Eliquis] 2.5 mg PO BID Ciprofloxacin HCl [Cipro] 500 mg PO BID HYDROcodone/APAP 5-325MG [[place] 5-325] 1 tab PO Q6H PRN PRN Reason: Pain Discharge Medication List Gabapentin [Neurontin] 300 mg PO TID 01/17/15 [History] Finasteride [Proscar] 5 mg PO DAILY 12/14/15 [History] Apixaban [Eliquis] 2.5 mg PO BID 01/24/17 [History] Ciprofloxacin HCl [Cipro] 500 mg PO BID 08/20/20 [History] HYDROcodone/APAP 5-325MG [[place] 5-325] 1 tab PO Q6H PRN 08/20/20 [History] Follow up Appointment(s)/Referral(s): [facility], [NON-STAFF] - 1-2 Days Renan Chowdhury MD [Primary Care Provider] - 1-2 days Discharge/Stand Alone Forms: Help In The Home Discharge Disposition: TRANSFER TO SNF/ECF
== END 2020-08-26 12:50 | DRG 57 ==
LOC: EC 17:16 → 1SOBS 20:37 → 6NMEDSUR 23:08 → OBSVTOIN 08-23 10:09
PROVIDERS: ADMIT Family Medicine; ATTEND Family Medicine
DX: G91.2 (Idiopathic) normal pressure hydrocephalus (principal); G93.40 Encephalopathy, unspecified; N39.0 Urinary tract infection, site not specified; E78.5 Hyperlipidemia, unspecified; E86.0 Dehydration; G89.29 Other chronic pain; I10 Essential (primary) hypertension; I48.91 Unspecified atrial fibrillation; J44.9 Chronic obstructive pulmonary disease, unspecified; R29.6 Repeated falls; Z91.81 History of falling; Z79.01 Long term (current) use of anticoagulants; Z79.899 Other long term (current) drug therapy; Z80.0 Family history of malignant neoplasm of digestive organs; M50.30 Other cervical disc degeneration, unspecified cervical region; Z82.49 Family history of ischemic heart disease and other diseases of the circulatory system; Z86.19 Personal history of other infectious and parasitic diseases; Z86.711 Personal history of pulmonary embolism; Z20.822 Contact with and (suspected) exposure to COVID-19; Z86.718 Personal history of other venous thrombosis and embolism; Z87.442 Personal history of urinary calculi; Z90.49 Acquired absence of other specified parts of digestive tract; Z96.642 Presence of left artificial hip joint; Z87.01 Personal history of pneumonia (recurrent); R63.4 Abnormal weight loss; Z68.28 Body mass index [BMI] 28.0-28.9, adult; Z90.89 Acquired absence of other organs; Z86.010 Personal history of colon polyps
CPT/HCPCS: 36415; 70450; 71046; 80048; 80053; 81003; 82550; 82607; 82746; 83605; 83735; 83880; 84443; 84484; 85025; 85027; 85610; 85730; 87635; 93005; 96360; 99285

== ENCOUNTER 2022-08-30 13:28 | Emergency (ER) | payer MEDICARE ==
--- NOTE | 2022-08-30 13:47 | ED ---
General Adult HPI - General Chief complaint: GI Bleed Stated complaint: GI Bleed Time Seen by Provider: 08/30/22 13:32 Source: patient, EMS Mode of arrival: EMS Limitations: no limitations - History of Present Illness Initial comments: Patient presents to the ED by ambulance from his [facility] for evaluation. Per EMS, the [facility] reports that the patient has had blood noticed in his diapers since last night. Patient is reportedly on Eliquis anticoagulation therapy. Patient denies having any pain or complaints at this time. Patient denies trauma or injury, fever or chills, headache, chest pain or pressure, dyspnea, dizziness/lightheadedness, abdominal pain, rectal pain, nausea or vomiting, diarrhea or constipation, dysuria/hematuria/urinary frequency/urinary symptoms, or any other symptoms or complaints. - Related Data Home Medications Medication Instructions Recorded Confirmed Atorvastatin [Lipitor] 40 mg PO HS 08/05/22 08/30/22 Doxazosin [Cardura] 2 mg PO DAILY 08/05/22 08/30/22 0.9 % Sodium Chloride [Sodium 10 ml IV TID@0500,1300,2100 08/30/22 08/30/22 Chloride Flush] Gabapentin 600 mg PO BID 08/30/22 08/30/22 HYDROcodone/APAP 10-325MG [[place] 1 tab PO Q6H PRN 08/30/22 08/30/22 10-325] ceFAZolin [Kefzol] 2 gm IVP TID@0500,1300,2100 08/30/22 08/30/22 Previous Rx's Medication Instructions Recorded Acetaminophen Tab [Tylenol] 650 mg PO Q6HR PRN tab 08/12/22 Apixaban [Eliquis] 5 mg PO BID tab 08/12/22 Furosemide [Lasix] 40 mg PO BID@0900,1600 tab 08/12/22 Magnesium Hydroxide [Milk of 2,400 mg PO BID PRN ml 08/12/22 Magnesia Concentrate] Metoprolol Tartrate [Lopressor] 25 mg PO TID tab 08/12/22 bisacodyL [Dulcolax] 10 mg PO DAILY PRN tab 08/12/22 Allergies Allergy/AdvReac Type Severity Reaction Status Date / Time Penicillins Allergy Unknown. Verified 08/30/22 15:18 INJECTION FORM ONLY Review of Systems ROS Statement: Those systems with pertinent positive or pertinent negative responses have been documented in the HPI. ROS Other: All systems not noted in ROS Statement are negative. 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 Past Psychological History: No Psychological Hx Reported Smoking Status: Unknown if ever smoked Past Alcohol Use History: Rare Past Drug Use History: None Reported - Past Family History Father Family Medical History: Cancer Additional Family Medical History / Comment(s): Father had colon cancer. He of aortic aneurysm at age 92/93 yrs Mother Family Medical History: Coronary Artery Disease (CAD) Additional Family Medical History / Comment(s): Mother had heart issues and at age 75/76 yrs. General Exam Limitations: no limitations General appearance: alert, in no apparent distress Head exam: Present: normocephalic ENT exam: Present: mucous membranes moist Respiratory exam: Present: normal lung sounds bilaterally. Absent: respiratory distress, wheezes, rales, rhonchi, stridor Cardiovascular Exam: Present: regular rate, normal rhythm, normal heart sounds, other (Normal radial pulses bilaterally) GI/Abdominal exam: Present: soft. Absent: distended, tenderness, guarding Rectal exam: Present: other (Blood-tinged brown-colored stool is noted on rectal exam; stool was sent for Hemoccult testing). Absent: tenderness Extremities exam: Absent: pedal edema Neurological exam: Present: alert, oriented X3. Absent: motor sensory deficit Psychiatric exam: Present: normal affect, normal mood Skin exam: Present: warm, dry, intact, normal color Course Vital Signs 08/30/22 08/30/22 08/30/22 13:31 13:50 14:00 Temperature 97.9 F Pulse Rate 62 69 55 L Respiratory 16 21 16 Rate Blood Pressure 91/53 91/53 91/53 O2 Sat by Pulse 97 96 97 Oximetry 08/30/22 08/30/22 08/30/22 14:10 14:30 14:40 Temperature Pulse Rate 58 L 61 64 Respiratory 11 L 13 7 L Rate Blood Pressure 70/34 75/61 77/47 O2 Sat by Pulse 96 93 L 98 Oximetry 08/30/22 08/30/22 08/30/22 14:50 15:00 15:10 Temperature Pulse Rate 64 69 60 Respiratory 7 L 14 7 L Rate Blood Pressure 71/46 71/46 101/58 O2 Sat by Pulse 97 96 96 Oximetry 08/30/22 08/30/22 08/30/22 15:20 15:30 15:40 Temperature Pulse Rate 70 66 65 Respiratory 14 14 12 Rate Blood Pressure 90/57 81/36 83/51 O2 Sat by Pulse 98 97 95 Oximetry 08/30/22 08/30/22 08/30/22 15:50 16:00 16:10 Temperature Pulse Rate 73 73 71 Respiratory 14 10 L 10 L Rate Blood Pressure 86/56 82/42 114/86 O2 Sat by Pulse 97 99 Oximetry 08/30/22 08/30/22 08/30/22 16:20 16:30 16:40 Temperature Pulse Rate 70 68 73 Respiratory 11 L 12 13 Rate Blood Pressure 105/34 70/41 88/50 O2 Sat by Pulse Oximetry 08/30/22 08/30/22 08/30/22 16:50 17:00 17:10 Temperature Pulse Rate 74 73 75 Respiratory 8 L 8 L 15 Rate Blood Pressure 78/46 83/39 87/72 O2 Sat by Pulse Oximetry 08/30/22 08/30/22 08/30/22 17:20 17:30 17:40 Temperature Pulse Rate 76 75 73 Respiratory 8 L 8 L 10 L Rate Blood Pressure 90/43 85/55 76/42 O2 Sat by Pulse Oximetry - Reevaluation(s) Reevaluation #1: 08/30/22 17:40 Case was discussed with Dr. Heard (general surgery). He agrees to see the patient in consultation for lower GI bleed, but requests that the patient's medical team admit the patient to the hospital. He has no further recommendations at this time. 08/30/22 17:56 Case, H&P, test results, ED management and my discussion with Dr. Heard as above were discussed with Dr. Welch. He accepts hospital admission. He has no further recommendations at this time. 08/30/22 18:19 I have had a long discussion with the patient's daughter/healthcare POA, son and the patient. They are all aware of the patient's test results. They all wish for the patient to be discharged back to his [facility] at this time, and they are requesting that the patient be evaluated for hospice/palliative care. ED nurse to attempt to arrange for hospice/palliative care evaluation for the patient at his ch[facility] and will discuss with chcf staff. Will discharge patient back to his ch[facility] at this time per patient's/family's request. Patient and family are all wall aware of the risks of the patient being discharged back to his ch[facility], including continued bleeding, further morbidity and even . They were counseled about GI bleeding and hypocalcemia. They were clearly explained return and follow-up instructions. They feel comfortable with this plan. Medical Decision Making - Medical Decision Making Was pt. sent in by a medical professional or institution (, PA, DETAIL SUPERVISOR, urgent care, hospital, or chcf...) When possible be specific @ -Patient was sent to the ED from his ch[facility]. Did you speak to anyone other than the patient for history (EMS, parent, family, police, friend...)? What history was obtained from this source @ -Story was also obtained from EMS. Did you review nursing and triage notes (agree or disagree)? Why? @ -I reviewed and agree with nursing and triage notes Were old charts reviewed (outside hosp., previous admission, EMS record, old EKG, old radiological studies, urgent care reports/EKG's, chcf records)? Report findings @ -No old charts were reviewed Differential Diagnosis (chest pain, altered mental status, abdominal pain women, abdominal pain men, vaginal bleeding, weakness, fever, dyspnea, syncope, headache, dizziness, GI bleed, back pain, seizure, CVA, palpatations, mental health, musculoskeletal)? @ -Differential GI Bleed: Esophageal varices, aortoenteric fistula, Shira-Veliz, gastritis, peptic ulcer disease, diverticulosis, inflammatory bowel disease, hemorrhoids, fissure, colitis, malignancy, Meckels diverticulum, anemia, coagulopathy, this is not meant to be an all-inclusive list. EKG interpreted by me (3pts min.). @ -None done] X-rays interpreted by me (1pt min.). @ -None done CT interpreted by me (1pt min.). @ -None done U/S interpreted by me (1pt. min.). @ -None done What testing was considered but not performed or refused? (CT, X-rays, U/S, labs)? Why? @ -None What meds were considered but not given or refused? Why? @ -None Did you discuss the management of the patient with other professionals (professionals i.e. , PA, DETAIL SUPERVISOR, lab, RT, psych nurse, medical social consultant, director fundraising, teacher, gifts officer, field nurse case manager)? Give summary @ -As above Was smoking cessation discussed for >3mins.? @ -No Was critical care preformed (if so, how long)? @ -No Were there social determinants of health that impacted care today? How? (Homelessness, low income, unemployed, alcoholism, drug addiction, transportation, low edu. Level, literacy, decrease access to med. care, alf, rehab)? @ -Patient is a [facility] resident. Patient is adamantly requesting palliative care and states that he wishes to go back to his chcf. Patient's daughter/healthcare POA and son also wish for the patient to be on palliative/hospice care at this time. Was there de-escalation of care discussed even if they declined (Discuss DNR or withdrawal of care, Hospice)? DNR status @ -Patient is a [facility] resident. Patient is adamantly requesting palliative care and states that he wishes to go back to his ch[facility]. Patient's daughter/healthcare POA and son also wish for the patient to be on palliative/hospice care at this time. What co-morbidities impacted this encounter? (DM, HTN, Smoking, COPD, CAD, Cancer, CVA, ARF, Chemo, Hep., AIDS, mental health diagnosis, sleep apnea, morbid obesity)? @ -None Was patient admitted / discharged? Hospital course, mention meds given and route, prescriptions, significant lab abnormalities, going to OR and other pertinent info. @ -Patient has been borderline hypotensive while in the ED. Patient's hemoglobin is stable. Patient has not had any large bloody bowel movements while in the ED. Patient's labs reveal a stable hemoglobin of 12.9. Patient is hypocalcemic at 6.9. Patient has been treated with IV fluids and IV Protonix in the ED. After a long discussion, the patient and his daughter/healthcare POA and son all wished for the patient to be returned to her is her chcf, and they wished for the patient be evaluated for palliative/hospice care. They understand the risks of the patient returning to his chcf without any further evaluation/care, including continued bleeding and even . They all agree with this plan. Undiagnosed new problem with uncertain prognosis? @ -No Drug Therapy requiring intensive monitoring for toxicity (Heparin, Nitro, Insulin, Cardizem)? @ -No Were any procedures done? @ -No Diagnosis/symptom? @ -Rectal bleeding Acute, or Chronic, or Acute on Chronic? @ -You Uncomplicated (without systemic symptoms) or Complicated (systemic symptoms)? @ -default Side effects of treatment? @ -No Exacerbation, Progression, or Severe Exacerbation? @ -No Poses a threat to life or bodily function? How? (Chest pain, USA, CT, pneumonia, PE, COPD, DKA, ARF, appy, cholecystitis, CVA, Diverticulitis, Homicidal, Suicidal, threat to staff... and all critical care pts) @ -Yes. This can lead to exsanguination and . Diagnosis/symptom? @ -Hypotension Acute, or Chronic, or Acute on Chronic? @ -Acute Uncomplicated (without systemic symptoms) or Complicated (systemic symptoms)? @ -default Side effects of treatment? @ -none Exacerbation, Progression, or Severe Exacerbation @ -no Poses a threat to life or bodily function? @ -Yes. Diagnosis/symptom? @ -Hypocalcemia Acute, or Chronic, or Acute on Chronic? @ -default Uncomplicated (without systemic symptoms) or Complicated (systemic symptoms)? @ -default Side effects of treatment? @ -none Exacerbation, Progression, or Severe Exacerbation @ -no Poses a threat to life or bodily function? @ -no - Lab Data Result diagrams: 08/30/22 14:42 08/30/22 16:00 Lab Results 08/30/22 08/30/22 08/30/22 Range/Units 14:42 14:42 14:42 WBC 4.8 (3.8-10.6) k/uL RBC 3.56 L (4.30-5.90) m/uL Hgb 12.9 L (13.0-17.5) gm/dL Hct 38.6 L (39.0-53.0) % MCV 108.7 H (80.0-100.0) fL MCH 36.1 H (25.0-35.0) pg MCHC 33.3 (31.0-37.0) g/dL RDW 14.0 (11.5-15.5) % Plt Count 155 (150-450) k/uL MPV 8.9 Neutrophils % (Manual) 63 % Band Neuts % (Manual) 6 % Lymphocytes % (Manual) 23 % Monocytes % (Manual) 6 % Eosinophils % (Manual) 2 % Neutrophils # (Manual) 3.30 (1.3-7.7) k/uL Lymphocytes # (Manual) 1.10 (1.0-4.8) k/uL Monocytes # (Manual) 0.29 (0-1.0) k/uL Eosinophils # (Manual) 0.10 (0-0.7) k/uL Nucleated RBCs 0 (0-0) /100 WBC Manual Slide Review Performed Macrocytosis Marked A Rouleaux Present PT 12.8 H (9.0-12.0) sec INR 1.3 H (<1.2) APTT 29.5 (22.0-30.0) sec Sodium (137-145) mmol/L Potassium (3.5-5.1) mmol/L Chloride (98-107) mmol/L Carbon Dioxide (22-30) mmol/L Anion Gap mmol/L BUN (9-20) mg/dL Creatinine (0.66-1.25) mg/dL Est GFR (CKD-EPI)AfAm (>60 ml/min/1.73 sqM) Est GFR (CKD-EPI)NonAf (>60 ml/min/1.73 sqM) Glucose (74-99) mg/dL Calcium (8.4-10.2) mg/dL Total Bilirubin (0.2-1.3) mg/dL AST (17-59) U/L ALT (4-49) U/L Alkaline Phosphatase (38-126) U/L Total Protein (6.3-8.2) g/dL Albumin (3.5-5.0) g/dL Stool Occult Blood Positive (Negative) Blood Type Blood Type Recheck Bld Type Recheck Status Antibody Screen Spec Expiration Date 08/30/22 08/30/22 Range/Units 14:42 16:00 WBC (3.8-10.6) k/uL RBC (4.30-5.90) m/uL Hgb (13.0-17.5) gm/dL Hct (39.0-53.0) % MCV (80.0-100.0) fL MCH (25.0-35.0) pg MCHC (31.0-37.0) g/dL RDW (11.5-15.5) % Plt Count (150-450) k/uL MPV Neutrophils % (Manual) % Band Neuts % (Manual) % Lymphocytes % (Manual) % Monocytes % (Manual) % Eosinophils % (Manual) % Neutrophils # (Manual) (1.3-7.7) k/uL Lymphocytes # (Manual) (1.0-4.8) k/uL Monocytes # (Manual) (0-1.0) k/uL Eosinophils # (Manual) (0-0.7) k/uL Nucleated RBCs (0-0) /100 WBC Manual Slide Review Macrocytosis Rouleaux PT (9.0-12.0) sec INR (<1.2) APTT (22.0-30.0) sec Sodium 136 L (137-145) mmol/L Potassium 4.0 (3.5-5.1) mmol/L Chloride 102 (98-107) mmol/L Carbon Dioxide 31 H (22-30) mmol/L Anion Gap 3 mmol/L BUN 13 (9-20) mg/dL Creatinine 0.48 L (0.66-1.25) mg/dL Est GFR (CKD-EPI)AfAm >90 (>60 ml/min/1.73 sqM) Est GFR (CKD-EPI)NonAf >90 (>60 ml/min/1.73 sqM) Glucose 90 (74-99) mg/dL Calcium 6.9 L (8.4-10.2) mg/dL Total Bilirubin 0.7 (0.2-1.3) mg/dL AST 21 (17-59) U/L ALT 9 (4-49) U/L Alkaline Phosphatase 65 (38-126) U/L Total Protein 5.6 L (6.3-8.2) g/dL Albumin 2.6 L (3.5-5.0) g/dL Stool Occult Blood (Negative) Blood Type O Positive Blood Type Recheck O Pos Bld Type Recheck Status No Antibody Screen NEGATIVE Spec Expiration Date 09/02/20222341 Critical Care Time Critical Care Time: Yes Total Critical Care Time: 40 Disposition Clinical Impression: Rectal bleeding, Hypocalcemia, Hypotension Disposition: HOME SELF-CARE Condition: Serious Instructions (If sedation given, give patient instructions): Gastrointestinal Bleeding (ED), Hypocalcemia (ED) Additional Instructions: Return to the ER if you change your mind about wanting to receive emergency/hospital care. Follow up closely with your primary care provider. Is patient prescribed a controlled substance at d/c from ED?: No Referrals: Shaquille Hong DO [Primary Care Provider] - 1-2 days Time of Disposition: 18:42
[2022-08-30] MEDS ORDERED: PANTOPRAZOLE 40 MG/10 ML VIAL IVP STA (13:51)
[2022-08-30] MEDS ORDERED: SODIUM CHLORIDE 0.9% 500 ML 500 ML IV STA (13:51)
[2022-08-30] MEDS ORDERED: SODIUM CHLORIDE 0.9% 1,000 ML IV ONE ×2 (15:27→17:48)
[2022-08-30 15:28] LABS: INR 1.3 (<1.2); Partial Thromboplastin Time 29.5 sec (22.0-30.0); Prothrombin Time 12.8 sec (9.0-12.0)
[2022-08-30 15:54] LABS: HCT 38.6 % (39.0-53.0); HGB 12.9 gm/dL (13.0-17.5); MCH 36.1 pg (25.0-35.0); MCHC 33.3 g/dL (31.0-37.0); MCV 108.7 fL (80.0-100.0); Macrocytosis Marked; Mean Platelet Volume 8.9; Platelet Count 155 k/uL (150-450); RBC 3.56 m/uL (4.30-5.90); WBC 4.8 k/uL (3.8-10.6)
[2022-08-30 16:30] LABS: ALT 9 U/L (4-49); AST 21 U/L (17-59); African American GFR (CKD) >90 (>60 ml/min/1.73 sqM); Albumin 2.6 g/dL (3.5-5.0); Alkaline Phosphatase 65 U/L (38-126); Anion Gap 3 mmol/L; Blood Urea Nitrogen 13 mg/dL (9-20); Calcium 6.9 mg/dL (8.4-10.2); Carbon Dioxide 31 mmol/L (22-30); Chloride 102 mmol/L (98-107); Glucose 90 mg/dL (74-99); Non-African American GFR(CKD) >90 (>60 ml/min/1.73 sqM); Sodium 136 mmol/L (137-145); Total Bilirubin 0.7 mg/dL (0.2-1.3); Total Protein 5.6 g/dL (6.3-8.2)
[2022-08-30 16:43] LABS: Band Neutrophils % 6 %; Monocytes # (M) 0.29 k/uL (0-1.0); Neutrophils % (M) 63 %; Nucleated Red Blood Cells 0 /100 WBC (0-0); Rouleaux Present; Total Cells Counted 100
[2022-08-30] MEDS ORDERED: CALCIUM GLUCONATE IN NACL 2 GM in SALINE 1 100ML.BAG IVPB ONE (17:48)
[2022-08-30 19:59] VITALS: BP 98/74; PULSE 74; RESP 18; TEMP 98.8
== END 2022-08-30 20:11 | disposition home or self-care (01) ==
LOC: EC 13:28
DX: K62.5 Hemorrhage of anus and rectum (principal); E83.51 Hypocalcemia; I95.9 Hypotension, unspecified; E78.5 Hyperlipidemia, unspecified; I10 Essential (primary) hypertension; G47.30 Sleep apnea, unspecified; M19.90 Unspecified osteoarthritis, unspecified site; Z86.711 Personal history of pulmonary embolism; Z79.1 Long term (current) use of non-steroidal anti-inflammatories (NSAID); Z79.899 Other long term (current) drug therapy; Z88.0 Allergy status to penicillin
CPT/HCPCS: 36415; 86900; 86901; 80053; 85025; 85610; 85730; 86850; 82272; 99285; 96374; 96361; C9113